=== PATIENT | male | born 1945 | race Caucasian/White ===

== ENCOUNTER 2021-02-14 12:31 | Emergency (ER) | payer OTHER ==
[~2021-02-14] VITALS: Ht 165.1 cm; Wt 78.0 kg
[2021-02-14 12:35] VITALS: BP 152/64
[2021-02-14 13:04] LABS: BASOPHILS % (AUTO) 0.6 % (0.0-5.0); EOSINOPHILS % (AUTO) 2.5 % (0.0-8.0); HEMATOCRIT 34.1 % (42-54); LYMPHOCYTES % (AUTO) 22.6 % (21.0-51.0); MEAN CORPUSCULAR HEMOGLOBIN 29.3 pg (27.0-33.0); MEAN CORPUSCULAR HGB CONC 33.7 g/dL (32.0-36.0); MEAN CORPUSCULAR VOLUME 86.8 fL (79-99); MONOCYTES % (AUTO) 8.8 % (3.0-13.0); NEUTROPHILS % (AUTO) 65.4 % (40.0-77.0); PLATELET COUNT (AUTO) 214 K/uL (130-400); RED BLOOD CELL COUNT(AUTO) 3.93 MIL/uL (4.50-6.20); RED CELL DISTRIBUTION WIDTH 12.1 % (11.0-15.5); WHITE BLOOD COUNT (AUTO) 7.1 K/uL (4.8-10.8)
[2021-02-14 13:14] LABS: ALBUMIN 2.6 g/dL (3.5-5.0); BILIRUBIN,TOTAL 0.4 mg/dL (0.2-1.0); CREATININE 2.8 mg/dL (0.5-1.5); POTASSIUM 4.4 mmol/L (3.5-5.1); TOTAL PROTEIN, SERUM 6.4 g/dL (6.0-8.3)
[2021-02-14] MEDS ORDERED: INSULIN HUMULIN R 100 UNIT/ML 3ML SQ ONE (13:30)
[2021-02-14] MEDS ORDERED: 0.9%NACL 1000ML 1,000 ML IV ONE (13:30)
[2021-02-14 13:52] LABS: APPEARANCE,URINE Clear (CLEAR); BILIRUBIN,URINE Negative (NEGATIVE); COLOR,URINE Yellow (YELLOW); GLUCOSE, URINE (UA) >=1000 mg/dL (NEGATIVE); KETONES,URINE Negative (NEGATIVE); LEUKOCYTE ESTERASE ,URINE Negative (NEGATIVE); NITRATE,URINE Negative (NEGATIVE); OCCULT BLOOD,URINE Trace (NEGATIVE); PROTEIN,URINE >=1000 mg/dL (NEGATIVE); UROBILINOGEN,URINE 0.2 mg/dL (0.2-1.0)
[2021-02-14 14:00] LABS: BACTERIA,URINE Rare /HPF (None Seen); MUCUS,URINE Rare LPF (None Seen); RBC,URINE 0-1 /HPF (0-1); SQUAMOUS EPITHELIAL CELL,UR Rare /HPF (0-2); WBC,URINE 0-1 /HPF (0-1)
[2021-02-14] MEDS ORDERED: CITA-107 PO (15:07)
[2021-02-14 15:12] VITALS: BP 152/65
== END 2021-02-14 15:20 | disposition home or self-care (01) ==
LOC: EDH 12:31
DX: E11.65 Type 2 diabetes mellitus with hyperglycemia (principal); E78.00 Pure hypercholesterolemia, unspecified; F41.9 Anxiety disorder, unspecified; F32.9 Major depressive disorder, single episode, unspecified; I10 Essential (primary) hypertension; Z79.4 Long term (current) use of insulin; Z79.899 Other long term (current) drug therapy
CPT/HCPCS: 36415; 80053; 81001; 82010; 82948; 85025; 96360; 96372; 99283; J1815; J7030

== ENCOUNTER 2021-02-26 06:42 | Inpatient (IN) | payer OTHER ==
[~2021-02-26] VITALS: Ht 182.9 cm; Wt 81.3 kg
[2021-02-26] VITALS (11 sets, daily range): BP systolic 127–164; BP diastolic 54–72
[~2021-02-26 06:42] MED LIST: CITA-107 PO
[2021-02-26 08:19] LABS: BASOPHILS % (AUTO) 0.4 % (0.0-5.0); EOSINOPHILS % (AUTO) 1.5 % (0.0-8.0); HEMATOCRIT 26.2 % (42-54); MEAN CORPUSCULAR HEMOGLOBIN 29.3 pg (27.0-33.0); MEAN CORPUSCULAR HGB CONC 33.6 g/dL (32.0-36.0); MEAN CORPUSCULAR VOLUME 87.3 fL (79-99); MONOCYTES % (AUTO) 14.5 % (3.0-13.0); NEUTROPHILS % (AUTO) 66.2 % (40.0-77.0); PLATELET COUNT (AUTO) 164 K/uL (130-400); RED CELL DISTRIBUTION WIDTH 12.4 % (11.0-15.5); WHITE BLOOD COUNT (AUTO) 4.8 K/uL (4.8-10.8)
[2021-02-26 08:42] LABS: ALBUMIN 2.2 g/dL (3.5-5.0); BILIRUBIN,TOTAL 0.3 mg/dL (0.2-1.0); CREATININE 2.9 mg/dL (0.5-1.5); POTASSIUM 3.8 mmol/L (3.5-5.1); TOTAL PROTEIN, SERUM 5.3 g/dL (6.0-8.3)
[2021-02-26 09:00] LABS: APPEARANCE,URINE Clear (CLEAR); BILIRUBIN,URINE Negative (NEGATIVE); COLOR,URINE Yellow (YELLOW); GLUCOSE, URINE (UA) >=1000 mg/dL (NEGATIVE); KETONES,URINE Trace mg/dL (NEGATIVE); LEUKOCYTE ESTERASE ,URINE Negative (NEGATIVE); NITRATE,URINE Negative (NEGATIVE); OCCULT BLOOD,URINE Small (NEGATIVE); PROTEIN,URINE >=1000 mg/dL (NEGATIVE); UROBILINOGEN,URINE 0.2 mg/dL (0.2-1.0)
[2021-02-26 10:03] LABS: RBC,URINE 0-1 /HPF (0-1)
[2021-02-26 10:04] LABS: BACTERIA,URINE Few /HPF (None Seen); SQUAMOUS EPITHELIAL CELL,UR None Seen /HPF (0-2); WBC,URINE None Seen /HPF (0-1)
[2021-02-26] MEDS ORDERED: HEPARIN 25,000 UNITS/250ML D5W 250 ML IV PRN (11:30)
[2021-02-26] MEDS ORDERED: HEPARIN 5,000 UNIT VIAL IV SCH (11:30)
[2021-02-26] MEDS ORDERED: NITROGLYCERIN 1GM OINT 1 INCH/1GM TD SCH (11:30)
[2021-02-26] MEDS ORDERED: ASPIRIN 81MG CHEW TAB PO SCH (11:30)
[2021-02-26] MEDS ORDERED: ATORVASTATIN 40 MG TABLET PO ONE (13:00)
[2021-02-26] MEDS ORDERED: METOPROLOL TARTRATE 25 MG TAB PO ONE (13:00)
[2021-02-26] MEDS ORDERED: NITROGLYCERIN 1GM OINT 1 INCH/1GM TD ONE (13:00)
[2021-02-26 13:10] LABS: HEMOGLOBIN A1C 11.9 % (4.0-6.0)
[2021-02-26] MEDS ORDERED: MORPHINE 2 MG SYG IVP PRN (13:30)
[2021-02-26] MEDS ORDERED: ONDANSETRON 4MG INJ IV PRN (13:30)
[2021-02-26] MEDS ORDERED: HYDROCODONE/ACETAMINOPHEN 5/325 MG TAB PO PRN (13:30)
[2021-02-26] MEDS ORDERED: LACTULOSE 20 GM/30 ML UDCUP PO PRN (13:30)
[2021-02-26] MEDS ORDERED: NITROGLYCERIN 0.4 MG SL TAB SL PRN (13:30)
[2021-02-26] MEDS ORDERED: ACETAMINOPHEN 325 MG TAB PO PRN (13:30)
[2021-02-26] MEDS ORDERED: METOPROLOL TARTRATE 25 MG TAB ONE (13:47)
[2021-02-26] MEDS ORDERED: PERFLUTREN PROTEIN-A MICROSPHR 0.22 MG/ML VIAL IV ONE (13:48)
[2021-02-26] MEDS: INSULIN HUMULIN R 100 UNIT/ML 3ML SQ SCH ×2 (16:26→20:50)
[2021-02-26] MEDS ORDERED: ISOSORBIDE MONO 30MG SR TAB PO SCH (17:30)
[2021-02-26] MEDS ORDERED: CLOPIDOGREL 75MG TAB ONE (17:42)
[2021-02-26] MEDS: CLOPIDOGREL 75MG TAB PO SCH (17:45)
[2021-02-26 20:01] LABS: INR 0.98 (0.85-1.15); PROTHROMBIN TIME 10.7 SEC (9.6-11.6)
[2021-02-26 20:02] LABS: PARTIAL THROMBOPLASTIN TIME 28.8 SEC (26.3-35.5)
[2021-02-26] MEDS: ATORVASTATIN 40 MG TABLET PO SCH (20:44)
[2021-02-26] MEDS: FAMOTIDINE 20MG VIAL IV SCH (20:45)
[2021-02-26] MEDS: METOPROLOL TARTRATE 25 MG TAB PO SCH (20:50)
[2021-02-26] MEDS: INSULIN GLARGINE 100 UNITS/ML 10 ML VIAL SQ SCH (20:51)
[2021-02-26] MEDS ORDERED: METOPROLOL TARTRATE 25 MG TAB PO SCH (21:00)
[2021-02-27 00:08] VITALS: BP 157/58
[2021-02-27 04:12] VITALS: BP 149/55
[2021-02-27] MEDS: INSULIN HUMULIN R 100 UNIT/ML 3ML SQ SCH ×4 (06:38→21:33)
[2021-02-27 06:48] LABS: BASOPHILS % (AUTO) 0.4 % (0.0-5.0); EOSINOPHILS % (AUTO) 1.7 % (0.0-8.0); HEMATOCRIT 29.1 % (42-54); LYMPHOCYTES % (AUTO) 28.3 % (21.0-51.0); MEAN CORPUSCULAR HEMOGLOBIN 29.1 pg (27.0-33.0); MEAN CORPUSCULAR HGB CONC 31.6 g/dL (32.0-36.0); MEAN CORPUSCULAR VOLUME 92.1 fL (79-99); MONOCYTES % (AUTO) 11.8 % (3.0-13.0); NEUTROPHILS % (AUTO) 57.4 % (40.0-77.0); PLATELET COUNT (AUTO) 184 K/uL (130-400); RED BLOOD CELL COUNT(AUTO) 3.16 MIL/uL (4.50-6.20); RED CELL DISTRIBUTION WIDTH 12.8 % (11.0-15.5); WHITE BLOOD COUNT (AUTO) 7.1 K/uL (4.8-10.8)
[2021-02-27 07:03] LABS: ALBUMIN 2.1 g/dL (3.5-5.0); BILIRUBIN,TOTAL 0.3 mg/dL (0.2-1.0); CREATININE 2.7 mg/dL (0.5-1.5); POTASSIUM 3.6 mmol/L (3.5-5.1); TOTAL PROTEIN, SERUM 5.7 g/dL (6.0-8.3)
[2021-02-27 08:09] VITALS: BP 165/58
[2021-02-27] MEDS: ASPIRIN 81 MG EC TAB PO SCH (08:55)
[2021-02-27] MEDS: ISOSORBIDE MONO 30MG SR TAB PO SCH (08:55)
[2021-02-27] MEDS: METOPROLOL TARTRATE 25 MG TAB PO SCH ×2 (08:55→21:22)
[2021-02-27] MEDS ORDERED: LISI40TA9 PO (10:30)
[2021-02-27] MEDS ORDERED: CITA40TA14 PO (10:30)
[2021-02-27] MEDS ORDERED: AEC81 PO (10:30)
[2021-02-27] MEDS ORDERED: AMLO-257 PO (10:30)
[2021-02-27] MEDS ORDERED: FERR324T PO (10:30)
[2021-02-27] MEDS ORDERED: CHOL200012 PO (10:30)
[2021-02-27] MEDS ORDERED: CALC-1125 PO (10:30)
[2021-02-27] MEDS ORDERED: METO100T14 PO (10:30)
[2021-02-27] MEDS ORDERED: INSU100I21 SQ (10:30)
[2021-02-27] MEDS ORDERED: TAMS-1 PO (10:30)
[2021-02-27] MEDS ORDERED: PIOG15TA66 PO (10:30)
[2021-02-27] MEDS ORDERED: ATOR40TA69 PO (10:30)
[2021-02-27] MEDS ORDERED: CEFTRIAXONE 1G VIAL IVP SCH (10:30)
[2021-02-27] MEDS ORDERED: AMLODIPINE 2.5 MG TAB PO SCH (11:00)
[2021-02-27 12:00] VITALS: BP 152/53
[2021-02-27] MEDS ORDERED: COMPOUND IV MISC 1 EACH IVSOLN MISC PRN (13:30)
[2021-02-27] MEDS: IRON SUCROSE COMPLEX 100 MG in 0.9%NACL 50ML 50 ML IV SCH (14:08)
[2021-02-27 16:00] VITALS: BP 152/59
[2021-02-27] MEDS ORDERED: HEPARIN 25,000 UNITS/250ML D5W 250 ML IV ONE (19:05)
[2021-02-27 20:08] VITALS: BP 161/63
[2021-02-27] MEDS: ATORVASTATIN 40 MG TABLET PO SCH (21:22)
[2021-02-27] MEDS: FAMOTIDINE 20MG VIAL IV SCH (21:22)
[2021-02-27] MEDS: TAMSULOSIN HCL 0.4 MG CAP.ER.24H PO SCH (21:22)
[2021-02-27] MEDS: INSULIN GLARGINE 100 UNITS/ML 10 ML VIAL SQ SCH (21:35)
[2021-02-28] VITALS (13 sets, daily range): BP systolic 140–164; BP diastolic 56–104
[2021-02-28 01:13] LABS: BASOPHILS % (AUTO) 0.3 % (0.0-5.0); EOSINOPHILS % (AUTO) 2.9 % (0.0-8.0); LYMPHOCYTES % (AUTO) 16.5 % (21.0-51.0); MEAN CORPUSCULAR HEMOGLOBIN 29.7 pg (27.0-33.0); MEAN CORPUSCULAR HGB CONC 32.9 g/dL (32.0-36.0); MEAN CORPUSCULAR VOLUME 90.3 fL (79-99); MONOCYTES % (AUTO) 11.6 % (3.0-13.0); NEUTROPHILS % (AUTO) 68.3 % (40.0-77.0); PLATELET COUNT (AUTO) 158 K/uL (130-400); RED CELL DISTRIBUTION WIDTH 12.6 % (11.0-15.5); WHITE BLOOD COUNT (AUTO) 6.8 K/uL (4.8-10.8)
[2021-02-28 01:28] LABS: ALBUMIN 2.1 g/dL (3.5-5.0); BILIRUBIN,TOTAL 0.2 mg/dL (0.2-1.0); CREATININE 2.9 mg/dL (0.5-1.5); POTASSIUM 3.4 mmol/L (3.5-5.1); TOTAL PROTEIN, SERUM 5.5 g/dL (6.0-8.3)
[2021-02-28] MEDS: INSULIN HUMULIN R 100 UNIT/ML 3ML SQ SCH ×4 (06:11→21:00)
[2021-02-28] MEDS: METOPROLOL TARTRATE 25 MG TAB PO SCH ×2 (08:30→21:32)
[2021-02-28] MEDS: ISOSORBIDE MONO 30MG SR TAB PO SCH (08:30)
[2021-02-28] MEDS: ASPIRIN 81 MG EC TAB PO SCH (08:30)
[2021-02-28] MEDS: CLOPIDOGREL 75MG TAB PO SCH (08:31)
[2021-02-28] MEDS: IRON SUCROSE COMPLEX 100 MG in 0.9%NACL 50ML 50 ML IV SCH (08:38)
[2021-02-28] MEDS: CITALOPRAM 20 MG TABLET PO SCH (08:38)
[2021-02-28] MEDS ORDERED: CHOLECALCIFEROL 50 MCG PO SCH (09:00)
[2021-02-28] MEDS ORDERED: NON-FORMULARY MEDICATION 1 EACH (Calcium Carbonate (Calcium) 600 MG) PO SCH (09:00)
[2021-02-28] MEDS ORDERED: CITALOPRAM HYDROBROMIDE 40 MG PO SCH (09:00)
[2021-02-28] MEDS: CALCIUM CARB 500MG PO SCH (09:00)
[2021-02-28] MEDS: VITAMIN D3 50 MCG PO SCH (09:00)
[2021-02-28] MEDS ORDERED: HYDRALAZINE HCL 10 MG TABLET PO SCH (09:00)
[2021-02-28] MEDS ORDERED: IOHEXOL-350 50ML VIAL IV ONE (11:23)
[2021-02-28] MEDS ORDERED: IOHEXOL 350 MG/ML 100ML INFUS..BTL IV ONE (11:23)
[2021-02-28] MEDS ORDERED: HEPARIN 10,000 UNIT/10ML (1,000 UNIT/ML) VIAL ONE (11:23)
[2021-02-28] MEDS ORDERED: LIDOCAINE HCL 400MG/20ML VIAL ONE (11:23)
[2021-02-28] MEDS ORDERED: NITROGLYCERIN 50MG VIAL IV ONE (11:23)
[2021-02-28] MEDS ORDERED: MIDAZOLAM HCL 1 MG/ML 2ML VIAL ONE (11:23)
[2021-02-28] MEDS ORDERED: NICARDIPINE 25MG INJ IV ONE (11:23)
[2021-02-28] MEDS ORDERED: FENTANYL CITRATE PF 50 MCG/1 ML 2ML VIAL ONE (11:23)
[2021-02-28] MEDS ORDERED: HYDRALAZINE 20MG/ML VIAL ONE ×2 (12:15→12:47)
[2021-02-28] MEDS ORDERED: EPOETIN ALFA-EPBX (ESRD) 10,000 UNIT/ML VIAL SQ SCH (12:30)
[2021-02-28] MEDS: PHARMACY COMMUNICATION MISC SCH ×3 (13:30→18:05)
[2021-02-28] MEDS: HYDRALAZINE HCL 10 MG TABLET PO SCH ×2 (15:45→21:32)
[2021-02-28 17:36] LABS: ABG HCO3 23.4 mmol/L (21.0-28.0); ABG OXYGEN SATURATION 92.2 % (95.0-99.0); ABG PCO2 35 mmHg (35-48)
[2021-02-28] MEDS ORDERED: HEPARIN 5,000 UNIT VIAL IV PRN (18:30)
[2021-02-28] MEDS ORDERED: PHARMACY COMMUNICATION MISC SCH (18:30)
[2021-02-28] MEDS ORDERED: HEPARIN 25000 UNITS/D5W 250ML IV SCH (20:00)
[2021-02-28] MEDS ORDERED: INSULIN GLARGINE 100 UNITS/ML 10 ML VIAL SQ SCH (21:00)
[2021-02-28] MEDS: FAMOTIDINE 20MG VIAL IV SCH (21:32)
[2021-02-28] MEDS: ATORVASTATIN 40 MG TABLET PO SCH (21:32)
[2021-02-28] MEDS: TAMSULOSIN HCL 0.4 MG CAP.ER.24H PO SCH (21:32)
[2021-03-01] VITALS (28 sets, daily range): BP systolic 90–162; BP diastolic 39–87
[2021-03-01 02:45] LABS: HEMATOCRIT 24.9 % (42-54); MEAN CORPUSCULAR HEMOGLOBIN 29.5 pg (27.0-33.0); MEAN CORPUSCULAR HGB CONC 33.3 g/dL (32.0-36.0); MEAN CORPUSCULAR VOLUME 88.6 fL (79-99); PLATELET COUNT (AUTO) 158 K/uL (130-400); RED BLOOD CELL COUNT(AUTO) 2.81 MIL/uL (4.50-6.20); RED CELL DISTRIBUTION WIDTH 12.7 % (11.0-15.5)
[2021-03-01 03:09] LABS: ALBUMIN 1.9 g/dL (3.5-5.0); BILIRUBIN,TOTAL 0.3 mg/dL (0.2-1.0); CREATININE 2.9 mg/dL (0.5-1.5); POTASSIUM 3.3 mmol/L (3.5-5.1); TOTAL PROTEIN, SERUM 5.1 g/dL (6.0-8.3)
[2021-03-01 04:19] LABS: LYMPHOCYTES % (MANUAL) 16 % (22-44); MAN.DIFF COMMENT-IMPRESSION MANUAL DIFFERENTIAL; MONOCYTES % (MANUAL) 4 % (2-9); PHOSPHORUS 3.2 mg/dL (2.5-4.9); SEGMENTED NEUTROPHILS % 80 % (40-70); URIC ACID 6.6 mg/dL (2.6-7.2)
[2021-03-01 04:20] LABS: PLATELET MORPHOLOGY COMMENT ADEQUATE
[2021-03-01] MEDS ORDERED: KCL 20 MEQ ERTAB PO PRN (06:30)
[2021-03-01] MEDS ORDERED: LIDOCAINE HCL-MPF 1% 2ML VIAL IV PRN (06:30)
[2021-03-01] MEDS ORDERED: POTASSIUM CHLORIDE 10% ELIXIR 20 MEQ/15 ML UDCUP PO PRN (06:30)
[2021-03-01] MEDS ORDERED: POTASSIUM CHLORIDE 20MEQ/100ML 100 ML IV PRN (06:30)
[2021-03-01] MEDS: INSULIN HUMULIN R 100 UNIT/ML 3ML SQ SCH ×4 (06:38→11:55)
[2021-03-01 06:49] LABS: ABG BASE EXCESS 1.5 mmol/L (-2.0-3.0); ABG HCO3 24.8 mmol/L (21.0-28.0); ABG OXYGEN SATURATION 95.9 % (95.0-99.0); ABG PCO2 35 mmHg (35-48)
[2021-03-01] MEDS: IRON SUCROSE COMPLEX 100 MG in 0.9%NACL 50ML 50 ML IV SCH (09:00)
[2021-03-01] MEDS ORDERED: ISOSORBIDE MONO 30MG SR TAB PO SCH (09:00)
[2021-03-01] MEDS: VITAMIN D3 50 MCG PO SCH (09:00)
[2021-03-01] MEDS ORDERED: MORPHINE 2 MG SYG ONE (09:46)
[2021-03-01] MEDS: ASPIRIN 81 MG EC TAB PO SCH (09:52)
[2021-03-01] MEDS: METOPROLOL TARTRATE 25 MG TAB PO SCH (09:53)
[2021-03-01] MEDS: CITALOPRAM 20 MG TABLET PO SCH (09:57)
[2021-03-01] MEDS ORDERED: NITROGLYCERIN 50MG/D5W 250ML 250 BOT IV SCH ×2 (11:30→16:30)
[2021-03-01] MEDS: HYDRALAZINE HCL 10 MG TABLET PO SCH (11:42)
[2021-03-01] MEDS: CALCIUM CARB 500MG PO SCH (11:42)
[2021-03-01] MEDS ORDERED: NOREPINEPHRINE BITARTRATE 8 MG in 0.9% NACL 250ML 250 ML IV PRN (12:30)
[2021-03-01] MEDS ORDERED: AMINOCAPROIC ACID 5,000MG VIAL 15,000 MG in 0.9% NACL 500ML IV.SOLN 420 ML IV PRN (12:30)
[2021-03-01] MEDS ORDERED: EPINEPHRINE PF 1MG AMP 10 MG in 0.9% NACL 250ML 240 ML IV PRN (12:30)
[2021-03-01] MEDS ORDERED: PROPOFOL 10 MG/ML 20ML VIAL IV ONE (13:08)
[2021-03-01] MEDS ORDERED: PROTAMINE SULFATE 10 MG/ML 25ML VIAL IV ONE (13:08)
[2021-03-01] MEDS ORDERED: ESMOLOL HCL 10 MG/ML 10 ML VIAL ONE (13:08)
[2021-03-01] MEDS ORDERED: HEPARIN 10,000 UNIT/10ML (1,000 UNIT/ML) VIAL ONE (13:08)
[2021-03-01] MEDS ORDERED: AMINOCAPROIC ACID 5,000MG VIAL ONE (13:08)
[2021-03-01] MEDS ORDERED: EPINEPHRINE PF 1MG AMP ONE (13:08)
[2021-03-01] MEDS ORDERED: NOREPINEPHRINE BITARTRATE 1 MG/1 ML ML IV ONE (13:08)
[2021-03-01] MEDS ORDERED: LIDOCAINE PF 100MG/5ML (2%) SYRINGE 5ML ONE (13:08)
[2021-03-01] MEDS ORDERED: FENTANYL CITRATE PF 50 MCG/1 ML 20ML VIAL IJ ONE (13:09)
[2021-03-01] MEDS ORDERED: ROCURONIUM 10MG/1ML SYR 10 MG/ML ML ONE (13:09)
[2021-03-01] MEDS ORDERED: KETAMINE 50MG/ML SYRINGE 50 MG/ML DISP.SYRIN IV ONE (13:09)
[2021-03-01] MEDS ORDERED: MIDAZOLAM HCL 1 MG/ML 2ML VIAL ONE (13:09)
[2021-03-01] MEDS ORDERED: CEFAZOLIN SODIUM 1 GM VIAL ONE ×2 (13:26→13:27)
[2021-03-01] MEDS ORDERED: OCTYL 2-CYANOACRYLATE 1 EACH TP ONE (13:27)
[2021-03-01] MEDS ORDERED: PAPAVERINE HCL 30 MG/ML 2ML VIAL ONE (13:27)
[2021-03-01] MEDS ORDERED: AMIODARONE 150MG VIAL ONE ×2 (15:03→15:14)
[2021-03-01] MEDS ORDERED: SODIUM BICARB 8.4% 50ML SYRINGE ONE (15:04)
[2021-03-01] MEDS ORDERED: 0.9%NACL 1000ML 1,000 ML IV SCH (16:30)
[2021-03-01] MEDS ORDERED: ALBUMIN (HUMAN) 5% 250 ML IV PRN (16:30)
[2021-03-01] MEDS ORDERED: ONDANSETRON 4MG INJ IV PRN (16:30)
[2021-03-01] MEDS ORDERED: DEXTROSE 50%-WATER 50 ML DISP.SYRIN IV PRN (16:30)
[2021-03-01] MEDS ORDERED: EPINEPHRINE PF 1MG AMP 10 MG in DEXTROSE 5%-WATER 250 ML IV PRN (16:30)
[2021-03-01] MEDS ORDERED: 0.9%NACL 10ML VIAL IVP PRN (16:30)
[2021-03-01] MEDS ORDERED: INSULIN REGULAR, HUMAN 3ML 100 UNIT in 0.9%NACL 100ML 99 ML IV SCH ×2 (16:30)
[2021-03-01] MEDS ORDERED: MORPHINE 2 MG SYG IV PRN ×2 (16:30→17:00)
[2021-03-01] MEDS ORDERED: GLUCAGON 1MG KIT 1 MG ML IM PRN (16:30)
[2021-03-01] MEDS ORDERED: MAGNESIUM 2GM PREMIX 50ML 50 ML IV PRN (16:30)
[2021-03-01] MEDS ORDERED: NOREPINEPHRIN 4MG/NS 250ML 250 ML IV PRN (16:30)
[2021-03-01] MEDS ORDERED: TRAMADOL HCL 50 MG TABLET PO PRN ×2 (16:30)
[2021-03-01] MEDS ORDERED: ACETAMINOPHEN 650 MG SUPPOSITORY RC PRN (16:30)
[2021-03-01] MEDS ORDERED: ACETAMINOPHEN 325 MG TAB PO PRN (16:30)
[2021-03-01] MEDS ORDERED: 0.9% NACL 500ML IV.SOLN 500 ML IV SCH (16:30)
[2021-03-01] MEDS ORDERED: PROPOFOL 1000 MG/100 ML 100 ML IV PRN (16:30)
[2021-03-01] MEDS ORDERED: AMINOCAPROIC ACID 5,000MG VIAL 15,000 MG in 0.9% NACL 250ML 250 ML IV SCH (16:30)
[2021-03-01] MEDS ORDERED: POTASSIUM PHOS 15 mMOL+NS250ML 250 ML IV PRN (16:30)
[2021-03-01 16:59] LABS: HEMATOCRIT 24.4 % (42-54); MEAN CORPUSCULAR HEMOGLOBIN 30.5 pg (27.0-33.0); MEAN CORPUSCULAR HGB CONC 33.6 g/dL (32.0-36.0); MEAN CORPUSCULAR VOLUME 90.7 fL (79-99); RED BLOOD CELL COUNT(AUTO) 2.69 MIL/uL (4.50-6.20)
[2021-03-01 17:01] LABS: ABG BASE EXCESS -2.9 mmol/L (-2.0-3.0); ABG HCO3 21.4 mmol/L (21.0-28.0); ABG OXYGEN SATURATION 93.5 % (95.0-99.0); ABG PCO2 35 mmHg (35-48)
[2021-03-01 17:07] LABS: ABG OXYGEN SATURATION 70.7 % (95.0-99.0); BASE EXCESS,VENOUS BLOOD GAS -0.6 (-2.0-3.0); HCO3,VENOUS BLOOD GAS 26.1 (21.0-28.0); PCO2,VENOUS BLOOD GAS 51 (35-48)
[2021-03-01 17:13] LABS: INR 1.27 (0.85-1.15); PROTHROMBIN TIME 13.5 SEC (9.6-11.6)
[2021-03-01 17:14] LABS: CREATININE 3.1 mg/dL (0.5-1.5); MAGNESIUM 1.8 mg/dL (1.80-2.40); PHOSPHORUS 3.5 mg/dL (2.5-4.9); POTASSIUM 3.3 mmol/L (3.5-5.1)
[2021-03-01 17:15] LABS: PARTIAL THROMBOPLASTIN TIME 33.5 SEC (26.3-35.5)
[2021-03-01 18:41] LABS: ABG BASE EXCESS -4.6 mmol/L (-2.0-3.0); ABG HCO3 19.8 mmol/L (21.0-28.0); ABG OXYGEN SATURATION 96.2 % (95.0-99.0); ABG PCO2 34 mmHg (35-48)
[2021-03-01 20:06] LABS: ABG BASE EXCESS -3.1 mmol/L (-2.0-3.0); ABG HCO3 22.1 mmol/L (21.0-28.0); ABG OXYGEN SATURATION 96.1 % (95.0-99.0); ABG PCO2 40 mmHg (35-48)
[2021-03-01] MEDS: SODIUM BICARB 50MEQ 50ML VIAL IV PRN ×2 (20:31→21:23)
[2021-03-01 21:08] LABS: ABG BASE EXCESS 0.4 mmol/L (-2.0-3.0); ABG HCO3 25.5 mmol/L (21.0-28.0); ABG OXYGEN SATURATION 96.7 % (95.0-99.0); ABG PCO2 43 mmHg (35-48)
[2021-03-01] MEDS: POTASSIUM CHLORIDE 20MEQ/100ML 100 ML IV PRN (21:22)
[2021-03-01] MEDS: FAMOTIDINE 20MG VIAL IV SCH (21:24)
[2021-03-01] MEDS: CEFAZOLIN SODIUM 1 GM VIAL IV SCH (21:58)
[2021-03-01] MEDS: CALCIUM GLUC 1GM 1 GM in 0.9%NACL 50ML 50 ML IV PRN (21:58)
[2021-03-01 22:09] LABS: ABG BASE EXCESS 0.4 mmol/L (-2.0-3.0); ABG HCO3 24.7 mmol/L (21.0-28.0); ABG OXYGEN SATURATION 96.8 % (95.0-99.0); ABG PCO2 39 mmHg (35-48)
[2021-03-01 23:44] LABS: BASOPHILS % (AUTO) 0.1 % (0.0-5.0); HEMATOCRIT 29.1 % (42-54); LYMPHOCYTES % (AUTO) 3.7 % (21.0-51.0); MEAN CORPUSCULAR HEMOGLOBIN 30.1 pg (27.0-33.0); MEAN CORPUSCULAR HGB CONC 33.7 g/dL (32.0-36.0); MEAN CORPUSCULAR VOLUME 89.3 fL (79-99); MONOCYTES % (AUTO) 9.1 % (3.0-13.0); NEUTROPHILS % (AUTO) 86.6 % (40.0-77.0); PLATELET COUNT (AUTO) 134 K/uL (130-400); RED BLOOD CELL COUNT(AUTO) 3.26 MIL/uL (4.50-6.20); RED CELL DISTRIBUTION WIDTH 13.3 % (11.0-15.5); WHITE BLOOD COUNT (AUTO) 15.8 K/uL (4.8-10.8)
[2021-03-01 23:52] LABS: CREATININE 3.6 mg/dL (0.5-1.5); MAGNESIUM 2.1 mg/dL (1.80-2.40); POTASSIUM 3.4 mmol/L (3.5-5.1)
[2021-03-02] VITALS (87 sets, daily range): BP systolic 90–150; BP diastolic 31–141
[2021-03-02 00:30] LABS: ABG OXYGEN SATURATION 97.5 % (95.0-99.0)
[2021-03-02 00:30] LABS: ABG BASE EXCESS -1.1 mmol/L (-2.0-3.0); ABG HCO3 23.6 mmol/L (21.0-28.0); ABG OXYGEN SATURATION 98.3 % (95.0-99.0); ABG PCO2 39 mmHg (35-48)
[2021-03-02 00:30] LABS: ABG OXYGEN SATURATION 98.1 % (95.0-99.0)
[2021-03-02 01:15] LABS: ABG BASE EXCESS 1.8 mmol/L (-2.0-3.0); ABG HCO3 26.1 mmol/L (21.0-28.0); ABG OXYGEN SATURATION 96.6 % (95.0-99.0); ABG PCO2 40 mmHg (35-48)
[2021-03-02 04:14] LABS: ABG BASE EXCESS 3.2 mmol/L (-2.0-3.0); ABG OXYGEN SATURATION 96.8 % (95.0-99.0); ABG PCO2 38 mmHg (35-48)
[2021-03-02 04:44] LABS: HEMATOCRIT 28.8 % (42-54); MEAN CORPUSCULAR HEMOGLOBIN 29.5 pg (27.0-33.0); MEAN CORPUSCULAR HGB CONC 33.3 g/dL (32.0-36.0); MEAN CORPUSCULAR VOLUME 88.6 fL (79-99); RED BLOOD CELL COUNT(AUTO) 3.25 MIL/uL (4.50-6.20); RED CELL DISTRIBUTION WIDTH 13.6 % (11.0-15.5); WHITE BLOOD COUNT (AUTO) 14.6 K/uL (4.8-10.8)
[2021-03-02 04:57] LABS: INR 1.07 (0.85-1.15); PROTHROMBIN TIME 11.6 SEC (9.6-11.6)
[2021-03-02 05:03] LABS: ALBUMIN 1.7 g/dL (3.5-5.0); BILIRUBIN,TOTAL 0.2 mg/dL (0.2-1.0); CREATININE 3.7 mg/dL (0.5-1.5); PHOSPHORUS 0.9 mg/dL (2.5-4.9); POTASSIUM 3.5 mmol/L (3.5-5.1); TOTAL PROTEIN, SERUM 4.5 g/dL (6.0-8.3)
[2021-03-02] MEDS: CEFAZOLIN SODIUM 1 GM VIAL IV SCH ×2 (06:07→13:12)
[2021-03-02 06:38] LABS: ABG BASE EXCESS 3.6 mmol/L (-2.0-3.0); ABG HCO3 27.4 mmol/L (21.0-28.0); ABG OXYGEN SATURATION 96.5 % (95.0-99.0); ABG PCO2 39 mmHg (35-48)
[2021-03-02] MEDS: CALCIUM GLUC 1GM 1 GM in 0.9%NACL 50ML 50 ML IV PRN (06:53)
[2021-03-02] MEDS: POTASSIUM CHLORIDE 20MEQ/100ML 100 ML IV PRN (07:57)
[2021-03-02] MEDS ORDERED: CEFAZOLIN SODIUM 1 GM VIAL IVP PRN (12:00)
[2021-03-02] MEDS: ASPIRIN 81 MG EC TAB PO SCH (16:53)
[2021-03-02] MEDS: FUROSEMIDE 20MG VIAL IV SCH (16:53)
[2021-03-02] MEDS ORDERED: EPINEPHRINE PF 1MG AMP 10 MG in 0.9% NACL 250ML 250 ML IV SCH (19:00)
[2021-03-02] MEDS ORDERED: PHARMACY COMMUNICATION MISC SCH (19:00)
[2021-03-02] MEDS ORDERED: ALBUMIN (HUMAN) 5% 500 ML IV SCH (19:41)
[2021-03-02 19:59] LABS: ABG BASE EXCESS 3.1 mmol/L (-2.0-3.0); ABG HCO3 27.5 mmol/L (21.0-28.0); ABG OXYGEN SATURATION 94.6 % (95.0-99.0); ABG PCO2 41 mmHg (35-48)
[2021-03-02] MEDS ORDERED: INSULIN HUMULIN R 100 UNIT/ML 3ML ONE (20:20)
[2021-03-02] MEDS: AMIODARONE 900MG VIAL 150 MG in DEXTROSE 5%-WATER 100 ML IV PRN (20:27)
[2021-03-02] MEDS: ATORVASTATIN 40 MG TABLET PO SCH (20:30)
[2021-03-02] MEDS ORDERED: AMIODARONE 900MG VIAL 360 MG in DEXTROSE 5%-WATER 200 ML IV PRN (20:30)
[2021-03-02] MEDS: FAMOTIDINE 20MG VIAL IV SCH (20:30)
[2021-03-02 21:07] LABS: CREATININE 4.4 mg/dL (0.5-1.5); POTASSIUM 4.2 mmol/L (3.5-5.1)
[2021-03-02 21:39] LABS: ABG BASE EXCESS -2.8 mmol/L (-2.0-3.0); ABG HCO3 21.1 mmol/L (21.0-28.0); ABG OXYGEN SATURATION 95.3 % (95.0-99.0); ABG PCO2 33 mmHg (35-48)
[2021-03-03] VITALS (31 sets, daily range): BP systolic 108–166; BP diastolic 37–95
[2021-03-03] MEDS ORDERED: AMIODARONE 900MG VIAL 450 MG in DEXTROSE 5%-WATER 250 ML IV PRN (02:30)
[2021-03-03 04:04] LABS: BASOPHILS % (AUTO) 0.1 % (0.0-5.0); EOSINOPHILS % (AUTO) 0.5 % (0.0-8.0); HEMATOCRIT 24.8 % (42-54); LYMPHOCYTES % (AUTO) 7.1 % (21.0-51.0); MEAN CORPUSCULAR HEMOGLOBIN 30.3 pg (27.0-33.0); MEAN CORPUSCULAR HGB CONC 33.5 g/dL (32.0-36.0); MEAN CORPUSCULAR VOLUME 90.5 fL (79-99); NEUTROPHILS % (AUTO) 82.4 % (40.0-77.0); PLATELET COUNT (AUTO) 106 K/uL (130-400); RED BLOOD CELL COUNT(AUTO) 2.74 MIL/uL (4.50-6.20); RED CELL DISTRIBUTION WIDTH 14.4 % (11.0-15.5); WHITE BLOOD COUNT (AUTO) 20.8 K/uL (4.8-10.8)
[2021-03-03 04:07] LABS: ABG BASE EXCESS 1.7 mmol/L (-2.0-3.0); ABG HCO3 26.2 mmol/L (21.0-28.0); ABG OXYGEN SATURATION 93.9 % (95.0-99.0); ABG PCO2 41 mmHg (35-48)
[2021-03-03 04:13] LABS: CREATININE 4.5 mg/dL (0.5-1.5); POTASSIUM 4.2 mmol/L (3.5-5.1)
[2021-03-03 04:14] LABS: INR 1.07 (0.85-1.15); PROTHROMBIN TIME 11.6 SEC (9.6-11.6)
[2021-03-03 04:15] LABS: PARTIAL THROMBOPLASTIN TIME 34.2 SEC (26.3-35.5)
[2021-03-03] MEDS: FUROSEMIDE 20MG VIAL IV SCH (04:44)
[2021-03-03] MEDS: ASPIRIN 81 MG EC TAB PO SCH (08:03)
[2021-03-03] MEDS ORDERED: PHARMACY COMMUNICATION MISC SCH ×2 (10:30)
[2021-03-03] MEDS: FUROSEMIDE 40MG VIAL IV SCH (10:37)
[2021-03-03] MEDS: ZOSYN 3.375GM+NS 50ML 50 ML IV SCH ×2 (10:37→22:09)
[2021-03-03] MEDS: FUROSEMIDE 100 MG/NS 100ML IV SCH ×4 (10:38→22:07)
[2021-03-03] MEDS: INSULIN HUMULIN R 100 UNIT/ML 3ML SQ SCH ×3 (11:30→21:00)
[2021-03-03 13:51] LABS: ABG BASE EXCESS -1.5 mmol/L (-2.0-3.0); ABG HCO3 23.3 mmol/L (21.0-28.0); ABG PCO2 40 mmHg (35-48)
[2021-03-03] MEDS: ATORVASTATIN 40 MG TABLET PO SCH (21:08)
[2021-03-03 21:49] LABS: CREATININE 5.4 mg/dL (0.5-1.5)
[2021-03-04] VITALS (22 sets, daily range): BP systolic 100–147; BP diastolic 50–90
[2021-03-04 04:23] LABS: ABG BASE EXCESS -3.9 mmol/L (-2.0-3.0); ABG HCO3 20.4 mmol/L (21.0-28.0); ABG OXYGEN SATURATION 92.3 % (95.0-99.0); ABG PCO2 34 mmHg (35-48)
[2021-03-04 05:32] LABS: HEMATOCRIT 26.8 % (42-54); MEAN CORPUSCULAR HEMOGLOBIN 30.3 pg (27.0-33.0); MEAN CORPUSCULAR HGB CONC 32.5 g/dL (32.0-36.0); MEAN CORPUSCULAR VOLUME 93.4 fL (79-99); RED BLOOD CELL COUNT(AUTO) 2.87 MIL/uL (4.50-6.20); RED CELL DISTRIBUTION WIDTH 14.1 % (11.0-15.5); WHITE BLOOD COUNT (AUTO) 15.5 K/uL (4.8-10.8)
[2021-03-04 05:48] LABS: ALBUMIN 1.7 g/dL (3.5-5.0); BILIRUBIN,TOTAL 0.4 mg/dL (0.2-1.0); CREATININE 5.7 mg/dL (0.5-1.5); MAGNESIUM 2.3 mg/dL (1.80-2.40); POTASSIUM 5.7 mmol/L (3.5-5.1); TOTAL PROTEIN, SERUM 4.9 g/dL (6.0-8.3)
[2021-03-04] MEDS: INSULIN HUMULIN R 100 UNIT/ML 3ML SQ SCH ×3 (07:36→18:00)
[2021-03-04] MEDS: ASPIRIN 81 MG EC TAB PO SCH (08:18)
[2021-03-04] MEDS: FAMOTIDINE 20MG TAB PO SCH (08:18)
[2021-03-04] MEDS: AMIODARONE 200 MG TABLET PO SCH ×3 (08:18→21:00)
[2021-03-04] MEDS: ENOXAPARIN SODIUM 30 MG/0.3 ML SQ SCH (08:19)
[2021-03-04] MEDS: INSULIN GLARGINE 100 UNITS/ML 10 ML VIAL SQ SCH (08:22)
[2021-03-04] MEDS: FUROSEMIDE 40MG VIAL IV SCH (08:31)
[2021-03-04] MEDS ORDERED: AMIODARONE 200 MG TABLET PO SCH (09:00)
[2021-03-04] MEDS: FUROSEMIDE 100 MG/NS 100ML IV SCH ×2 (09:50)
[2021-03-04] MEDS ORDERED: KAYEXALATE 15GM/60ML PO SCH (11:00)
[2021-03-04] MEDS ORDERED: DEXTROSE 5 %-0.225 % NACL 500 ML IV SCH (11:00)
[2021-03-04] MEDS: ZOSYN 3.375GM+NS 50ML 50 ML IV SCH ×2 (12:56→23:09)
[2021-03-04] MEDS: 1/2 NS 1000ML 1,000 ML IV SCH (12:58)
[2021-03-04 15:51] LABS: POTASSIUM 4.7 mmol/L (3.5-5.1)
[2021-03-04] MEDS ORDERED: AMIODARONE 150MG VIAL ONE (17:46)
[2021-03-04] MEDS ORDERED: AMIODARONE 900MG VIAL 900 MG in DEXTROSE 5%-WATER 500 ML IV SCH (18:00)
[2021-03-04] MEDS ORDERED: AMIODARONE 900MG VIAL 150 MG in DEXTROSE 5%-WATER 100 ML IV SCH (18:00)
[2021-03-04] MEDS: AMIODARONE 900MG VIAL 150 MG in DEXTROSE 5%-WATER 100 ML IV PRN (18:01)
[2021-03-04] MEDS: ATORVASTATIN 40 MG TABLET PO SCH (21:00)
[2021-03-04] MEDS ORDERED: 0.9%NACL 50ML 50 ML IV ONE (23:07)
[2021-03-05] VITALS (24 sets, daily range): BP systolic 99–155; BP diastolic 42–81
[2021-03-05 04:38] LABS: HEMATOCRIT 27.5 % (42-54); MEAN CORPUSCULAR HEMOGLOBIN 28.9 pg (27.0-33.0); MEAN CORPUSCULAR HGB CONC 31.6 g/dL (32.0-36.0); MEAN CORPUSCULAR VOLUME 91.4 fL (79-99); RED BLOOD CELL COUNT(AUTO) 3.01 MIL/uL (4.50-6.20); RED CELL DISTRIBUTION WIDTH 13.9 % (11.0-15.5); WHITE BLOOD COUNT (AUTO) 14.7 K/uL (4.8-10.8)
[2021-03-05 04:50] LABS: CREATININE 6.2 mg/dL (0.5-1.5); MAGNESIUM 2.3 mg/dL (1.80-2.40); PHOSPHORUS 5.4 mg/dL (2.5-4.9); POTASSIUM 4.3 mmol/L (3.5-5.1)
[2021-03-05] MEDS: 1/2 NS 1000ML 1,000 ML IV SCH (05:19)
[2021-03-05] MEDS: INSULIN HUMULIN R 100 UNIT/ML 3ML SQ SCH ×5 (05:50→23:43)
[2021-03-05 07:07] LABS: APPEARANCE,URINE Clear (CLEAR); BILIRUBIN,URINE Negative (NEGATIVE); COLOR,URINE Yellow (YELLOW); GLUCOSE, URINE (UA) Negative (NEGATIVE); KETONES,URINE Trace mg/dL (NEGATIVE); LEUKOCYTE ESTERASE ,URINE Trace (NEGATIVE); NITRATE,URINE Negative (NEGATIVE); OCCULT BLOOD,URINE Large (NEGATIVE); PROTEIN,URINE POS 2+ mg/dL (NEGATIVE); UROBILINOGEN,URINE 0.2 mg/dL (0.2-1.0)
[2021-03-05 07:16] LABS: BACTERIA,URINE Few /HPF (None Seen)
[2021-03-05] MEDS: ASPIRIN 81 MG EC TAB PO SCH ×2 (09:00→09:54)
[2021-03-05] MEDS: FAMOTIDINE 20MG TAB PO SCH ×2 (09:00→09:54)
[2021-03-05] MEDS: FUROSEMIDE 40MG VIAL IV SCH (09:09)
[2021-03-05] MEDS: ZOSYN 3.375GM+NS 50ML 50 ML IV SCH ×2 (09:54→23:42)
[2021-03-05] MEDS: ENOXAPARIN SODIUM 30 MG/0.3 ML SQ SCH (09:55)
[2021-03-05] MEDS: DEXTROSE 5 %-0.45 % NACL 1,000 ML IV SCH (09:55)
[2021-03-05] MEDS: INSULIN GLARGINE 100 UNITS/ML 10 ML VIAL SQ SCH (09:56)
[2021-03-05 12:45] LABS: INR 1.43 (0.85-1.15); PROTHROMBIN TIME 15.1 SEC (9.6-11.6)
[2021-03-05 12:47] LABS: PARTIAL THROMBOPLASTIN TIME 38.4 SEC (26.3-35.5)
[2021-03-05] MEDS: AMIODARONE 200 MG TABLET PO SCH ×2 (14:48→20:52)
[2021-03-05] MEDS: ATORVASTATIN 40 MG TABLET PO SCH (20:52)
[2021-03-05] MEDS ORDERED: 0.9%NACL 50ML 50 ML IV ONE (23:40)
[2021-03-06] VITALS (24 sets, daily range): BP systolic 138–170; BP diastolic 35–94
[2021-03-06] MEDS: DEXTROSE 5 %-0.45 % NACL 1,000 ML IV SCH ×2 (02:13→20:59)
[2021-03-06 03:47] LABS: HEMATOCRIT 25.9 % (42-54); MEAN CORPUSCULAR HEMOGLOBIN 29.6 pg (27.0-33.0); MEAN CORPUSCULAR HGB CONC 32.4 g/dL (32.0-36.0); MEAN CORPUSCULAR VOLUME 91.2 fL (79-99); NUCLEATED RED BLOOD CELLS 0.2 % (0.0-0.19); RED BLOOD CELL COUNT(AUTO) 2.84 MIL/uL (4.50-6.20); RED CELL DISTRIBUTION WIDTH 13.5 % (11.0-15.5); WHITE BLOOD COUNT (AUTO) 11.9 K/uL (4.8-10.8)
[2021-03-06 04:07] LABS: ALBUMIN 1.5 g/dL (3.5-5.0); BILIRUBIN,TOTAL 0.5 mg/dL (0.2-1.0); CREATININE 6.8 mg/dL (0.5-1.5); POTASSIUM 3.5 mmol/L (3.5-5.1); TOTAL PROTEIN, SERUM 4.8 g/dL (6.0-8.3)
[2021-03-06] MEDS: INSULIN HUMULIN R 100 UNIT/ML 3ML SQ SCH ×3 (06:00→17:30)
[2021-03-06] MEDS: FUROSEMIDE 40MG VIAL IV SCH (07:27)
[2021-03-06] MEDS ORDERED: AMLODIPINE 5 MG TAB PO SCH (09:00)
[2021-03-06] MEDS: ASPIRIN 81 MG EC TAB PO SCH (09:13)
[2021-03-06] MEDS: FAMOTIDINE 20MG TAB PO SCH (09:14)
[2021-03-06] MEDS: AMIODARONE 200 MG TABLET PO SCH ×2 (09:14→21:01)
[2021-03-06] MEDS: ENOXAPARIN SODIUM 30 MG/0.3 ML SQ SCH (09:14)
[2021-03-06] MEDS: INSULIN GLARGINE 100 UNITS/ML 10 ML VIAL SQ SCH (09:16)
[2021-03-06] MEDS: ZOSYN 3.375GM+NS 50ML 50 ML IV SCH ×2 (10:54→21:43)
[2021-03-06] MEDS: ATORVASTATIN 40 MG TABLET PO SCH (21:00)
[2021-03-07] VITALS (23 sets, daily range): BP systolic 136–164; BP diastolic 6–75
[2021-03-07 04:04] LABS: POTASSIUM 3.2 mmol/L (3.5-5.1)
[2021-03-07] MEDS: INSULIN HUMULIN R 100 UNIT/ML 3ML SQ SCH ×4 (06:12→21:00)
[2021-03-07] MEDS: AMLODIPINE 5 MG TAB PO SCH (08:02)
[2021-03-07] MEDS: AMIODARONE 200 MG TABLET PO SCH ×2 (08:02→21:05)
[2021-03-07] MEDS: CLOPIDOGREL 75MG TAB PO SCH (08:03)
[2021-03-07] MEDS: ASPIRIN 81 MG EC TAB PO SCH (08:03)
[2021-03-07] MEDS: FAMOTIDINE 20MG TAB PO SCH (08:03)
[2021-03-07] MEDS: ENOXAPARIN SODIUM 30 MG/0.3 ML SQ SCH (08:04)
[2021-03-07] MEDS: INSULIN GLARGINE 100 UNITS/ML 10 ML VIAL SQ SCH (08:05)
[2021-03-07] MEDS ORDERED: KCL 20 MEQ ERTAB PO SCH (08:30)
[2021-03-07] MEDS ORDERED: 0.9%NACL 50ML 50 ML IV ONE ×2 (10:33→20:33)
[2021-03-07] MEDS: ZOSYN 3.375GM+NS 50ML 50 ML IV SCH ×2 (10:35→22:55)
[2021-03-07] MEDS: ATORVASTATIN 40 MG TABLET PO SCH (21:05)
[2021-03-08] VITALS (16 sets, daily range): BP systolic 132–167; BP diastolic 55–103
[2021-03-08 03:48] LABS: HEMATOCRIT 25.5 % (42-54); MEAN CORPUSCULAR HEMOGLOBIN 29.7 pg (27.0-33.0); MEAN CORPUSCULAR HGB CONC 32.5 g/dL (32.0-36.0); MEAN CORPUSCULAR VOLUME 91.4 fL (79-99); RED BLOOD CELL COUNT(AUTO) 2.79 MIL/uL (4.50-6.20); RED CELL DISTRIBUTION WIDTH 13.3 % (11.0-15.5); WHITE BLOOD COUNT (AUTO) 9.3 K/uL (4.8-10.8)
[2021-03-08 04:04] LABS: MAGNESIUM 2.1 mg/dL (1.80-2.40); PHOSPHORUS 4.6 mg/dL (2.5-4.9); POTASSIUM 3.2 mmol/L (3.5-5.1)
[2021-03-08] MEDS: INSULIN HUMULIN R 100 UNIT/ML 3ML SQ SCH ×4 (07:30→21:00)
[2021-03-08] MEDS: CLOPIDOGREL 75MG TAB PO SCH (08:45)
[2021-03-08] MEDS: AMIODARONE 200 MG TABLET PO SCH ×2 (08:45→22:27)
[2021-03-08] MEDS: ASPIRIN 81 MG EC TAB PO SCH (08:45)
[2021-03-08] MEDS: ENOXAPARIN SODIUM 30 MG/0.3 ML SQ SCH (08:46)
[2021-03-08] MEDS: AMLODIPINE 5 MG TAB PO SCH (08:46)
[2021-03-08] MEDS: FAMOTIDINE 20MG TAB PO SCH (08:46)
[2021-03-08] MEDS: INSULIN GLARGINE 100 UNITS/ML 10 ML VIAL SQ SCH (08:48)
[2021-03-08] MEDS ORDERED: KCL 20 MEQ ERTAB PO SCH (09:00)
[2021-03-08] MEDS: ZOSYN 3.375GM+NS 50ML 50 ML IV SCH ×2 (10:14→22:27)
[2021-03-08] MEDS ORDERED: 0.9%NACL 50ML 50 ML IV ONE (20:08)
[2021-03-08] MEDS: ATORVASTATIN 40 MG TABLET PO SCH (22:27)
[2021-03-09] VITALS: BP 160/69
[2021-03-09 03:36] LABS: HEMATOCRIT 26.5 % (42-54); MEAN CORPUSCULAR HEMOGLOBIN 29.3 pg (27.0-33.0); MEAN CORPUSCULAR HGB CONC 32.1 g/dL (32.0-36.0); MEAN CORPUSCULAR VOLUME 91.4 fL (79-99); RED BLOOD CELL COUNT(AUTO) 2.9 MIL/uL (4.50-6.20); RED CELL DISTRIBUTION WIDTH 13.7 % (11.0-15.5); WHITE BLOOD COUNT (AUTO) 8.7 K/uL (4.8-10.8)
[2021-03-09 04:00] VITALS: BP 165/69
[2021-03-09 04:08] LABS: CREATININE 6.6 mg/dL (0.5-1.5); PHOSPHORUS 4.5 mg/dL (2.5-4.9); POTASSIUM 3.1 mmol/L (3.5-5.1)
[2021-03-09] MEDS: INSULIN GLARGINE 100 UNITS/ML 10 ML VIAL SQ SCH ×2 (07:30→09:14)
[2021-03-09 08:00] VITALS: BP 170/64
[2021-03-09] MEDS: CLOPIDOGREL 75MG TAB PO SCH (09:07)
[2021-03-09] MEDS: AMLODIPINE 5 MG TAB PO SCH (09:07)
[2021-03-09] MEDS: FAMOTIDINE 20MG TAB PO SCH (09:07)
[2021-03-09] MEDS: ASPIRIN 81 MG EC TAB PO SCH (09:07)
[2021-03-09] MEDS: AMIODARONE 200 MG TABLET PO SCH ×2 (09:08→20:37)
[2021-03-09] MEDS: ENOXAPARIN SODIUM 30 MG/0.3 ML SQ SCH (09:08)
[2021-03-09] MEDS: INSULIN HUMULIN R 100 UNIT/ML 3ML SQ SCH ×3 (09:13→21:06)
[2021-03-09 11:50] VITALS: BP 159/59
[2021-03-09] MEDS ORDERED: KCL 20 MEQ ERTAB PO SCH (12:00)
[2021-03-09] MEDS: ZOSYN 3.375GM+NS 50ML 50 ML IV SCH (12:33)
[2021-03-09 16:00] VITALS: BP 158/93
[2021-03-09 19:00] VITALS: BP 147/65
[2021-03-09] MEDS: ATORVASTATIN 40 MG TABLET PO SCH (20:37)
[2021-03-10] VITALS: BP 157/64
[2021-03-10] MEDS: ZOSYN 3.375GM+NS 50ML 50 ML IV SCH ×3 (00:35→20:53)
[2021-03-10 04:00] VITALS: BP 153/61
[2021-03-10] MEDS: INSULIN HUMULIN R 100 UNIT/ML 3ML SQ SCH ×4 (06:01→21:00)
[2021-03-10 07:00] VITALS: BP 154/65
[2021-03-10] MEDS ORDERED: INSULIN GLARGINE 100 UNITS/ML 10 ML VIAL SQ SCH (07:30)
[2021-03-10 08:31] LABS: BASOPHILS % (AUTO) 0.3 % (0.0-5.0); EOSINOPHILS % (AUTO) 3.6 % (0.0-8.0); HEMATOCRIT 28.8 % (42-54); LYMPHOCYTES % (AUTO) 17.5 % (21.0-51.0); MEAN CORPUSCULAR HEMOGLOBIN 29.2 pg (27.0-33.0); MEAN CORPUSCULAR HGB CONC 31.9 g/dL (32.0-36.0); MEAN CORPUSCULAR VOLUME 91.4 fL (79-99); MONOCYTES % (AUTO) 10.8 % (3.0-13.0); NEUTROPHILS % (AUTO) 66.3 % (40.0-77.0); PLATELET COUNT (AUTO) 305 K/uL (130-400); RED BLOOD CELL COUNT(AUTO) 3.15 MIL/uL (4.50-6.20); RED CELL DISTRIBUTION WIDTH 14.2 % (11.0-15.5); WHITE BLOOD COUNT (AUTO) 7.6 K/uL (4.8-10.8)
[2021-03-10 08:43] LABS: CREATININE 5.8 mg/dL (0.5-1.5)
[2021-03-10 08:52] LABS: POTASSIUM 2.7 mmol/L (3.5-5.1)
[2021-03-10] MEDS ORDERED: KCL 20 MEQ ERTAB PO SCH (10:30)
[2021-03-10] MEDS ORDERED: POTASSIUM CHLORIDE 10% ELIXIR 20 MEQ/15 ML UDCUP PO PRN (10:30)
[2021-03-10] MEDS ORDERED: LIDOCAINE HCL-MPF 1% 2ML VIAL IV PRN (10:30)
[2021-03-10] MEDS ORDERED: POTASSIUM CHLORIDE 10MEQ/100ML 100 ML IV PRN (10:30)
[2021-03-10] MEDS: ASPIRIN 81 MG EC TAB PO SCH (10:48)
[2021-03-10] MEDS: AMLODIPINE 5 MG TAB PO SCH (10:50)
[2021-03-10] MEDS: CLOPIDOGREL 75MG TAB PO SCH (10:50)
[2021-03-10] MEDS: FAMOTIDINE 20MG TAB PO SCH (10:50)
[2021-03-10] MEDS: AMIODARONE 200 MG TABLET PO SCH ×2 (10:50→20:52)
[2021-03-10] MEDS: ENOXAPARIN SODIUM 30 MG/0.3 ML SQ SCH (10:51)
[2021-03-10 11:00] VITALS: BP 141/59
[2021-03-10 15:00] VITALS: BP 128/59
[2021-03-10] MEDS: KCL 20 MEQ ERTAB PO PRN ×2 (15:24→17:45)
[2021-03-10] MEDS: ATORVASTATIN 40 MG TABLET PO SCH (20:52)
[2021-03-10 21:38] VITALS: BP 176/62
== END 2021-03-10 23:58 | DRG 233 ==
LOC: EDH 06:42 → EDHIP 13:08 → 4DH 21:41 → 2CH 03-01 15:05 → 2CV 03-01 15:24 → 2CH 03-02 18:42 → 2DH 03-04 17:37 → 4CH 03-09 04:23
PROVIDERS: ADMIT Internal Medicine; ATTEND Internal Medicine
PROC: 4A023N7 Measurement of Cardiac Sampling and Pressure, Left Heart, Percutaneous Approach (ICD-10-PCS; 2021-02-28)
PROC: B2111ZZ Fluoroscopy of Multiple Coronary Arteries using Low Osmolar Contrast (ICD-10-PCS; 2021-02-28)
PROC: 06BP4ZZ Excision of Right Saphenous Vein, Percutaneous Endoscopic Approach (ICD-10-PCS; 2021-03-01)
PROC: 30233N1 Transfusion of Nonautologous Red Blood Cells into Peripheral Vein, Percutaneous Approach (ICD-10-PCS; 2021-03-01)
PROC: 0210099 Bypass Coronary Artery, One Artery from Left Internal Mammary with Autologous Venous Tissue, Open Approach (ICD-10-PCS; principal; 2021-03-01 13:00)
PROC: 021209W Bypass Coronary Artery, Three Arteries from Aorta with Autologous Venous Tissue, Open Approach (ICD-10-PCS; 2021-03-01 13:00)
DX: I21.4 Non-ST elevation (NSTEMI) myocardial infarction (principal); I50.43 Acute on chronic combined systolic (congestive) and diastolic (congestive) heart failure; J96.91 Respiratory failure, unspecified with hypoxia; N18.6 End stage renal disease; J69.0 Pneumonitis due to inhalation of food and vomit; J95.1 Acute pulmonary insufficiency following thoracic surgery; N17.9 Acute kidney failure, unspecified; I13.2 Hypertensive heart and chronic kidney disease with heart failure and with stage 5 chronic kidney disease, or end stage renal disease; E87.0 Hyperosmolality and hypernatremia; R78.81 Bacteremia; I97.190 Other postprocedural cardiac functional disturbances following cardiac surgery; E87.6 Hypokalemia; E11.22 Type 2 diabetes mellitus with diabetic chronic kidney disease; E78.5 Hyperlipidemia, unspecified; E66.9 Obesity, unspecified; Z68.30 Body mass index [BMI] 30.0-30.9, adult; E11.65 Type 2 diabetes mellitus with hyperglycemia; F41.9 Anxiety disorder, unspecified; E78.00 Pure hypercholesterolemia, unspecified; I25.110 Atherosclerotic heart disease of native coronary artery with unstable angina pectoris; E88.09 Other disorders of plasma-protein metabolism, not elsewhere classified; F32.9 Major depressive disorder, single episode, unspecified; E11.42 Type 2 diabetes mellitus with diabetic polyneuropathy; Z20.822 Contact with and (suspected) exposure to COVID-19; I25.5 Ischemic cardiomyopathy; I44.7 Left bundle-branch block, unspecified; I48.0 Paroxysmal atrial fibrillation; N40.0 Benign prostatic hyperplasia without lower urinary tract symptoms; E87.5 Hyperkalemia; B96.89 Other specified bacterial agents as the cause of diseases classified elsewhere; D50.9 Iron deficiency anemia, unspecified; D63.8 Anemia in other chronic diseases classified elsewhere; E11.51 Type 2 diabetes mellitus with diabetic peripheral angiopathy without gangrene; R13.12 Dysphagia, oropharyngeal phase; Z98.42 Cataract extraction status, left eye; Z98.41 Cataract extraction status, right eye; Z95.5 Presence of coronary angioplasty implant and graft; Z79.84 Long term (current) use of oral hypoglycemic drugs; Z79.4 Long term (current) use of insulin; Z79.82 Long term (current) use of aspirin; Z79.899 Other long term (current) drug therapy; Z91.19 Patient's noncompliance with other medical treatment and regimen; Y83.9 Surgical procedure, unspecified as the cause of abnormal reaction of the patient, or of later complication, without mention of misadventure at the time of the procedure; Y92.89 Other specified places as the place of occurrence of the external cause
CPT/HCPCS: 36415; 36600; 70450; 71045; 74230; 76770; 80048; 80053; 81001; 82378; 82435; 82550; 82728; 82803; 82947; 82948; 83036; 83540; 83550; 83605; 83735; 83880; 84100; 84132; 84295; 84443; 84484; 84550; 85018; 85025; 85027; 85347; 85378; 85610; 85730; 86850; 86900; 86901; 86923; 87040; 87077; 87088; 87186; 87635; 87804; 92526; 92610; 92611; 93005; 93356; 93458; 93880; 93970; 94002; 94003; 94010; 94150; 97039; A7048; C1894; C8929; C9803; G0378; J0171; J0282; J0360; J0610; J0690; J0696; J1644; J1650; J1756; J1815; J1940; J2001; J2250; J2440; J2543; J2704; J2720; J3010; J3480; J3490; J7030; J7040; J7042; J7050; J7060; J7120; P9016; P9045; Q9967

== ENCOUNTER 2021-05-02 07:33 | Inpatient (IN) | payer MEDICARE, OTHER ==
[~2021-05-02] VITALS: Ht 167.6 cm; Wt 72.0 kg
[~2021-05-02 07:33] MED LIST changes: +AEC81 PO; +AMLO-257 PO; +ATOR40TA69 PO; +CALC-1125 PO; +CHOL200012 PO; +CITA40TA14 PO; +FERR324T PO; +INSU100I21 SQ; +LISI40TA9 PO; +METO100T14 PO; +PIOG15TA66 PO; +TAMS-1 PO
[2021-05-02 08:10] LABS: BASOPHILS % (AUTO) 0.3 % (0.0-5.0); EOSINOPHILS % (AUTO) 3.5 % (0.0-8.0); HEMATOCRIT 25.3 % (42-54); LYMPHOCYTES % (AUTO) 18.8 % (21.0-51.0); MEAN CORPUSCULAR HEMOGLOBIN 27.9 pg (27.0-33.0); MEAN CORPUSCULAR VOLUME 87.2 fL (79-99); MONOCYTES % (AUTO) 10.4 % (3.0-13.0); NEUTROPHILS % (AUTO) 66.5 % (40.0-77.0); PLATELET COUNT (AUTO) 303 K/uL (130-400); RED CELL DISTRIBUTION WIDTH 14.9 % (11.0-15.5); WHITE BLOOD COUNT (AUTO) 11.5 K/uL (4.8-10.8)
[2021-05-02 08:33] LABS: ALBUMIN 1.9 g/dL (3.5-5.0); BILIRUBIN,TOTAL 0.6 mg/dL (0.2-1.0); CREATININE 4.5 mg/dL (0.5-1.5); POTASSIUM 3.9 mmol/L (3.5-5.1); TOTAL PROTEIN, SERUM 6.4 g/dL (6.0-8.3)
[2021-05-02 08:48] LABS: APPEARANCE,URINE Clear (CLEAR); BILIRUBIN,URINE Negative (NEGATIVE); COLOR,URINE Yellow (YELLOW); GLUCOSE, URINE (UA) Negative (NEGATIVE); KETONES,URINE Negative (NEGATIVE); LEUKOCYTE ESTERASE ,URINE Negative (NEGATIVE); NITRATE,URINE Negative (NEGATIVE); OCCULT BLOOD,URINE Negative (NEGATIVE); PH,URINE 5.5 (5.0-8.0); PROTEIN,URINE 300 mg/dL (NEGATIVE); UROBILINOGEN,URINE 0.2 mg/dL (0.2-1.0)
[2021-05-02 08:51] LABS: B-TYPE NATRIURETIC PEPTIDE 324 pg/mL (0-100)
[2021-05-02 08:56] LABS: BACTERIA,URINE Rare /HPF (None Seen); RBC,URINE 0-1 /HPF (0-1); SQUAMOUS EPITHELIAL CELL,UR Rare /HPF (0-2); WBC,URINE 0-1 /HPF (0-1)
[2021-05-02] MEDS ORDERED: FUROSEMIDE 20MG VIAL IV ONE (10:30)
[2021-05-02] MEDS ORDERED: HYDRALAZINE 20MG/ML VIAL IV PRN (11:30)
[2021-05-02] MEDS ORDERED: ONDANSETRON 4MG INJ IV PRN (11:30)
[2021-05-02] MEDS: INSULIN HUMULIN R 100 UNIT/ML 3ML SQ SCH ×3 (11:30→19:51)
[2021-05-02] MEDS ORDERED: ACETAMINOPHEN 325 MG TAB PO PRN (11:30)
[2021-05-02 11:34] LABS: ABG HCO3 24.7 mmol/L (21.0-28.0); ABG PCO2 35 mmHg (35-48)
[2021-05-02 11:48] LABS: MAGNESIUM 2.1 mg/dL (1.80-2.40)
[2021-05-02 11:51] LABS: HEMOGLOBIN A1C 9.2 % (4.0-6.0)
[2021-05-02 12:08] LABS: INR 1.1 (0.85-1.15); PROTHROMBIN TIME 11.9 SEC (9.6-11.6)
[2021-05-02 12:09] LABS: PARTIAL THROMBOPLASTIN TIME 27.6 SEC (26.3-35.5)
[2021-05-02] MEDS ORDERED: DEXTROSE 50%-WATER 50 ML DISP.SYRIN IV ONE ×3 (12:46→23:50)
[2021-05-02] MEDS: FUROSEMIDE 40MG VIAL IVP SCH ×2 (15:27→22:39)
[2021-05-02] MEDS ORDERED: CLOP75TA32 PO (16:37)
[2021-05-02] MEDS ORDERED: CARB15DR OP (16:37)
[2021-05-02] MEDS ORDERED: TRIA15CR48 TP (16:37)
[2021-05-02] MEDS ORDERED: AMIO200T68 PO (16:37)
[2021-05-02] MEDS ORDERED: FOLI0.8T22 PO (16:37)
[2021-05-02] MEDS ORDERED: MULT-209 PO (16:37)
[2021-05-02] MEDS ORDERED: TORS20TA4 PO (16:37)
[2021-05-02] MEDS ORDERED: INSLAN SQ (16:37)
[2021-05-02] MEDS ORDERED: CYAN100099 PO (16:37)
[2021-05-02] MEDS ORDERED: FOLI1 PO (16:37)
[2021-05-02 17:31] VITALS: BP 124/59
[2021-05-02 19:48] VITALS: BP 116/52
[2021-05-03 00:13] VITALS: BP 137/51
[2021-05-03 04:04] VITALS: BP 125/52
[2021-05-03 04:35] LABS: BASOPHILS % (AUTO) 0.2 % (0.0-5.0); EOSINOPHILS % (AUTO) 3.7 % (0.0-8.0); HEMATOCRIT 25.6 % (42-54); LYMPHOCYTES % (AUTO) 16.4 % (21.0-51.0); MEAN CORPUSCULAR VOLUME 87.4 fL (79-99); MONOCYTES % (AUTO) 10.9 % (3.0-13.0); NEUTROPHILS % (AUTO) 68.5 % (40.0-77.0); PLATELET COUNT (AUTO) 322 K/uL (130-400); RED BLOOD CELL COUNT(AUTO) 2.93 MIL/uL (4.50-6.20); RED CELL DISTRIBUTION WIDTH 15.1 % (11.0-15.5); WHITE BLOOD COUNT (AUTO) 11.7 K/uL (4.8-10.8)
[2021-05-03 04:37] LABS: % IRON SATURATION 29.2 % (30-44)
[2021-05-03 04:41] LABS: ALBUMIN 1.8 g/dL (3.5-5.0); BILIRUBIN,TOTAL 0.5 mg/dL (0.2-1.0); CREATININE 4.3 mg/dL (0.5-1.5); PHOSPHORUS 5.7 mg/dL (2.5-4.9); POTASSIUM 3.5 mmol/L (3.5-5.1); URIC ACID 8.6 mg/dL (2.6-7.2)
[2021-05-03] MEDS: FUROSEMIDE 40MG VIAL IVP SCH ×4 (06:48→19:42)
[2021-05-03] MEDS: INSULIN HUMULIN R 100 UNIT/ML 3ML SQ SCH ×3 (07:30→20:06)
[2021-05-03 08:30] VITALS: BP 136/59
[2021-05-03] MEDS ORDERED: FAMOTIDINE 20MG VIAL IV SCH (09:00)
[2021-05-03] MEDS: Vitamin B Complex/Vit C/Folic Acid PO SCH (09:29)
[2021-05-03 12:48] VITALS: BP 133/64
[2021-05-03] MEDS ORDERED: FUROSEMIDE 100MG VIAL IVP ONE (16:00)
[2021-05-03 16:30] VITALS: BP 142/65
[2021-05-03 20:00] VITALS: BP 136/52
[2021-05-04] VITALS (7 sets, daily range): BP systolic 128–154; BP diastolic 52–67
[2021-05-04 04:07] LABS: HEMATOCRIT 23.7 % (42-54); MEAN CORPUSCULAR HEMOGLOBIN 28.4 pg (27.0-33.0); MEAN CORPUSCULAR HGB CONC 32.1 g/dL (32.0-36.0); MEAN CORPUSCULAR VOLUME 88.4 fL (79-99); PLATELET COUNT (AUTO) 295 K/uL (130-400); RED BLOOD CELL COUNT(AUTO) 2.68 MIL/uL (4.50-6.20); RED CELL DISTRIBUTION WIDTH 15.2 % (11.0-15.5); WHITE BLOOD COUNT (AUTO) 11.4 K/uL (4.8-10.8)
[2021-05-04 04:22] LABS: CREATININE 4.4 mg/dL (0.5-1.5); MAGNESIUM 2.1 mg/dL (1.80-2.40); POTASSIUM 3.6 mmol/L (3.5-5.1)
[2021-05-04 05:06] LABS: EOSINOPHILS % (MANUAL) 2 % (1-6); LYMPHOCYTES % (MANUAL) 20 % (22-44); MAN.DIFF COMMENT-IMPRESSION MANUAL DIFFERENTIAL; MONOCYTES % (MANUAL) 4 % (2-9); SEGMENTED NEUTROPHILS % 74 % (40-70)
[2021-05-04 05:07] LABS: PLATELET MORPHOLOGY COMMENT ADEQUATE
[2021-05-04] MEDS: INSULIN HUMULIN R 100 UNIT/ML 3ML SQ SCH ×4 (06:08→20:05)
[2021-05-04] MEDS: Vitamin B Complex/Vit C/Folic Acid PO SCH (07:59)
[2021-05-04] MEDS: FAMOTIDINE 20MG TAB PO SCH (07:59)
[2021-05-04] MEDS: FUROSEMIDE 40MG VIAL IVP SCH ×3 (08:01→21:00)
[2021-05-04] MEDS ORDERED: COMPOUND IV REFRIGERATED 1 EACH IVSOLN MISC PRN (17:00)
[2021-05-04] MEDS ORDERED: EPOETIN ALFA-EPBX (NON-ESRD) 10,000 UNIT/ML VIAL SQ SCH (20:00)
[2021-05-05 04:08] VITALS: BP 143/62
[2021-05-05 04:21] LABS: HEMATOCRIT 24.3 % (42-54); MEAN CORPUSCULAR HGB CONC 31.3 g/dL (32.0-36.0); MEAN CORPUSCULAR VOLUME 89.7 fL (79-99); RED BLOOD CELL COUNT(AUTO) 2.71 MIL/uL (4.50-6.20); RED CELL DISTRIBUTION WIDTH 15.1 % (11.0-15.5); WHITE BLOOD COUNT (AUTO) 11.8 K/uL (4.8-10.8)
[2021-05-05 04:25] LABS: CREATININE 4.5 mg/dL (0.5-1.5); PHOSPHORUS 5.4 mg/dL (2.5-4.9); POTASSIUM 3.4 mmol/L (3.5-5.1)
[2021-05-05] MEDS: FUROSEMIDE 40MG VIAL IVP SCH ×2 (05:51→16:20)
[2021-05-05] MEDS: INSULIN HUMULIN R 100 UNIT/ML 3ML SQ SCH ×4 (05:51→20:03)
[2021-05-05] MEDS: Vitamin B Complex/Vit C/Folic Acid PO SCH (07:44)
[2021-05-05] MEDS: FAMOTIDINE 20MG TAB PO SCH (07:44)
[2021-05-05 08:03] VITALS: BP 152/62
[2021-05-05 12:02] VITALS: BP 145/66
[2021-05-05] MEDS: CALCIUM AC 667MG CAP PO SCH (16:10)
[2021-05-05 16:17] VITALS: BP 152/57
[2021-05-05] MEDS ORDERED: PHARMACY COMMUNICATION MISC SCH (16:30)
[2021-05-05 20:00] VITALS: BP 149/60
[2021-05-05 23:54] VITALS: BP 165/67
[2021-05-06] VITALS (25 sets, daily range): BP systolic 138–165; BP diastolic 60–79
[2021-05-06] MEDS: FUROSEMIDE 40MG VIAL IVP SCH ×2 (03:16→17:00)
[2021-05-06 05:28] LABS: HEMATOCRIT 26.4 % (42-54); MEAN CORPUSCULAR HEMOGLOBIN 28.1 pg (27.0-33.0); MEAN CORPUSCULAR HGB CONC 31.1 g/dL (32.0-36.0); MEAN CORPUSCULAR VOLUME 90.4 fL (79-99); RED BLOOD CELL COUNT(AUTO) 2.92 MIL/uL (4.50-6.20); RED CELL DISTRIBUTION WIDTH 15.4 % (11.0-15.5); WHITE BLOOD COUNT (AUTO) 11.5 K/uL (4.8-10.8)
[2021-05-06 05:45] LABS: % IRON SATURATION 20.4 % (30-44)
[2021-05-06 05:47] LABS: BILIRUBIN,TOTAL 0.6 mg/dL (0.2-1.0); CREATININE 4.6 mg/dL (0.5-1.5); PHOSPHORUS 4.8 mg/dL (2.5-4.9); POTASSIUM 3.1 mmol/L (3.5-5.1); TOTAL PROTEIN, SERUM 6.3 g/dL (6.0-8.3)
[2021-05-06 05:49] LABS: INR 1.11 (0.85-1.15)
[2021-05-06] MEDS: INSULIN HUMULIN R 100 UNIT/ML 3ML SQ SCH ×4 (06:12→20:50)
[2021-05-06] MEDS: CALCIUM AC 667MG CAP PO SCH ×3 (08:00→16:46)
[2021-05-06] MEDS: Vitamin B Complex/Vit C/Folic Acid PO SCH (09:00)
[2021-05-06] MEDS: FAMOTIDINE 20MG TAB PO SCH (09:00)
[2021-05-06] MEDS ORDERED: LIDOCAINE HCL 1% MDV 50ML VIAL ONE (09:41)
[2021-05-06] MEDS ORDERED: HEPARIN 1,000 UNIT VIAL ONE (09:49)
[2021-05-06] MEDS: ASPIRIN 81 MG EC TAB PO SCH (11:17)
[2021-05-06] MEDS ORDERED: COMPOUND IV MISC 1 EACH IVSOLN MISC PRN (12:30)
[2021-05-06] MEDS: IRON SUCROSE COMPLEX 300 MG in 0.9%NACL 50ML 50 ML IV SCH (14:20)
[2021-05-06] MEDS: HEPARIN 5,000 UNIT VIAL IJ PRN (19:36)
[2021-05-06] MEDS: ATORVASTATIN 40 MG TABLET PO SCH (20:52)
[2021-05-07] VITALS (17 sets, daily range): BP systolic 109–168; BP diastolic 53–66
[2021-05-07] MEDS: FUROSEMIDE 40MG VIAL IVP SCH (04:47)
[2021-05-07 05:53] LABS: HEMATOCRIT 27.4 % (42-54); MEAN CORPUSCULAR HEMOGLOBIN 28.3 pg (27.0-33.0); MEAN CORPUSCULAR HGB CONC 31.4 g/dL (32.0-36.0); MEAN CORPUSCULAR VOLUME 90.1 fL (79-99); RED BLOOD CELL COUNT(AUTO) 3.04 MIL/uL (4.50-6.20); RED CELL DISTRIBUTION WIDTH 15.5 % (11.0-15.5); WHITE BLOOD COUNT (AUTO) 9.2 K/uL (4.8-10.8)
[2021-05-07 06:06] LABS: CREATININE 3.4 mg/dL (0.5-1.5); POTASSIUM 3.7 mmol/L (3.5-5.1)
[2021-05-07] MEDS: INSULIN HUMULIN R 100 UNIT/ML 3ML SQ SCH ×4 (06:19→21:00)
[2021-05-07] MEDS: CALCIUM AC 667MG CAP PO SCH ×3 (11:09→16:25)
[2021-05-07] MEDS: FAMOTIDINE 20MG TAB PO SCH (11:09)
[2021-05-07] MEDS: ASPIRIN 81 MG EC TAB PO SCH (11:09)
[2021-05-07] MEDS: IRON SUCROSE COMPLEX 300 MG in 0.9%NACL 50ML 50 ML IV SCH (11:10)
[2021-05-07] MEDS: Vitamin B Complex/Vit C/Folic Acid PO SCH (11:11)
[2021-05-07 15:11] LABS: HEPATITIS Bs ANTIGEN SCREEN P Negative (Negative)
[2021-05-07] MEDS: NACL NASAL SPRAY 120 SPRAY/BOTTLE NS SCH ×2 (16:39→21:07)
[2021-05-07] MEDS: ATORVASTATIN 40 MG TABLET PO SCH (21:07)
[2021-05-08] VITALS (7 sets, daily range): BP systolic 104–167; BP diastolic 43–69
[2021-05-08 05:42] LABS: ALBUMIN 1.8 g/dL (3.5-5.0); BILIRUBIN,TOTAL 0.8 mg/dL (0.2-1.0); CREATININE 2.8 mg/dL (0.5-1.5); MAGNESIUM 2.1 mg/dL (1.80-2.40); PHOSPHORUS 3.8 mg/dL (2.5-4.9); POTASSIUM 4.1 mmol/L (3.5-5.1); TOTAL PROTEIN, SERUM 6.1 g/dL (6.0-8.3)
[2021-05-08 06:13] LABS: HEMATOCRIT 25.1 % (42-54); MEAN CORPUSCULAR HEMOGLOBIN 28.4 pg (27.0-33.0); MEAN CORPUSCULAR HGB CONC 31.9 g/dL (32.0-36.0); RED BLOOD CELL COUNT(AUTO) 2.82 MIL/uL (4.50-6.20); RED CELL DISTRIBUTION WIDTH 15.7 % (11.0-15.5); WHITE BLOOD COUNT (AUTO) 12.3 K/uL (4.8-10.8)
[2021-05-08] MEDS: INSULIN HUMULIN R 100 UNIT/ML 3ML SQ SCH ×4 (06:26→21:07)
[2021-05-08] MEDS: CALCIUM AC 667MG CAP PO SCH ×3 (09:30→16:41)
[2021-05-08] MEDS: FAMOTIDINE 20MG TAB PO SCH (09:30)
[2021-05-08] MEDS: ASPIRIN 81 MG EC TAB PO SCH (09:30)
[2021-05-08] MEDS: Vitamin B Complex/Vit C/Folic Acid PO SCH (09:30)
[2021-05-08] MEDS: IRON SUCROSE COMPLEX 300 MG in 0.9%NACL 50ML 50 ML IV SCH (09:31)
[2021-05-08] MEDS: NACL NASAL SPRAY 120 SPRAY/BOTTLE NS SCH ×3 (09:38→21:07)
[2021-05-08] MEDS: ATORVASTATIN 40 MG TABLET PO SCH (21:06)
[2021-05-09] VITALS (64 sets, daily range): BP systolic 85–174; BP diastolic 38–95
[2021-05-09 04:51] LABS: BASOPHILS % (AUTO) 0.3 % (0.0-5.0); HEMATOCRIT 25.1 % (42-54); LYMPHOCYTES % (AUTO) 16.4 % (21.0-51.0); MEAN CORPUSCULAR HEMOGLOBIN 28.1 pg (27.0-33.0); MEAN CORPUSCULAR HGB CONC 31.1 g/dL (32.0-36.0); MEAN CORPUSCULAR VOLUME 90.3 fL (79-99); MONOCYTES % (AUTO) 11.2 % (3.0-13.0); NEUTROPHILS % (AUTO) 69.1 % (40.0-77.0); PLATELET COUNT (AUTO) 298 K/uL (130-400); RED BLOOD CELL COUNT(AUTO) 2.78 MIL/uL (4.50-6.20); RED CELL DISTRIBUTION WIDTH 15.8 % (11.0-15.5); WHITE BLOOD COUNT (AUTO) 14.2 K/uL (4.8-10.8)
[2021-05-09 05:02] LABS: INR 1.13 (0.85-1.15); PROTHROMBIN TIME 12.2 SEC (9.6-11.6)
[2021-05-09 05:03] LABS: PARTIAL THROMBOPLASTIN TIME 31.6 SEC (26.3-35.5)
[2021-05-09 05:07] LABS: ALBUMIN 1.9 g/dL (3.5-5.0); BILIRUBIN,TOTAL 0.7 mg/dL (0.2-1.0); CREATININE 3.9 mg/dL (0.5-1.5); MAGNESIUM 2.1 mg/dL (1.80-2.40); PHOSPHORUS 3.5 mg/dL (2.5-4.9); POTASSIUM 3.2 mmol/L (3.5-5.1); TOTAL PROTEIN, SERUM 5.9 g/dL (6.0-8.3)
[2021-05-09] MEDS: INSULIN HUMULIN R 100 UNIT/ML 3ML SQ SCH ×2 (05:59→22:32)
[2021-05-09] MEDS ORDERED: 0.9% NACL 500ML IV.SOLN 500 ML IV ONE (07:15)
[2021-05-09] MEDS: CEFAZOLIN SODIUM 1 GM VIAL IVP PRN ×2 (07:18→08:40)
[2021-05-09] MEDS ORDERED: CEFAZOLIN SODIUM 1 GM VIAL ONE (07:30)
[2021-05-09] MEDS: CALCIUM AC 667MG CAP PO SCH (08:00)
[2021-05-09] MEDS ORDERED: KETAMINE 50MG/ML SYRINGE 50 MG/ML DISP.SYRIN IV ONE (08:22)
[2021-05-09] MEDS ORDERED: ROPIVACAINE 0.5% 5MG/ML 30ML IJ ONE (08:22)
[2021-05-09] MEDS ORDERED: DEXAMETHASONE SOD PHOSPHATE 10MG/ML 1ML VIAL ONE ×2 (08:23→08:25)
[2021-05-09] MEDS ORDERED: MIDAZOLAM HCL 1 MG/ML 2ML VIAL ONE ×2 (08:24→10:26)
[2021-05-09] MEDS: NACL NASAL SPRAY 120 SPRAY/BOTTLE NS SCH ×2 (08:27→21:00)
[2021-05-09] MEDS ORDERED: LIDOCAINE HCL 1% 20 ML VIAL ONE (08:30)
[2021-05-09] MEDS ORDERED: BUPIVACAINE/PF 0.25% 30ML VIAL IJ ONE (08:30)
[2021-05-09] MEDS ORDERED: PROPOFOL 1000 MG/100 ML 100 ML IV ONE (08:33)
[2021-05-09] MEDS ORDERED: HEPARIN 10,000 UNIT/10ML (1,000 UNIT/ML) VIAL ONE (08:37)
[2021-05-09] MEDS ORDERED: SODIUM BICARB 8.4% 50ML SYRINGE ONE (08:51)
[2021-05-09] MEDS: Vitamin B Complex/Vit C/Folic Acid PO SCH (09:00)
[2021-05-09] MEDS: IRON SUCROSE COMPLEX 300 MG in 0.9%NACL 50ML 50 ML IV SCH (09:00)
[2021-05-09] MEDS: ASPIRIN 81 MG EC TAB PO SCH (09:00)
[2021-05-09] MEDS: FAMOTIDINE 20MG TAB PO SCH (09:00)
[2021-05-09 09:06] LABS: ABG BASE EXCESS -1.5 mmol/L (-2.0-3.0); ABG HCO3 28.7 mmol/L (21.0-28.0); ABG OXYGEN SATURATION 80.9 % (95.0-99.0); ABG PCO2 87 mmHg (35-48)
[2021-05-09] MEDS ORDERED: FLUMAZENIL 0.1MG/1ML 5ML VIAL IV ONE (09:15)
[2021-05-09] MEDS ORDERED: ROCURONIUM 10MG/1ML SYR 10 MG/ML ML ONE (09:25)
[2021-05-09 10:15] LABS: ABG BASE EXCESS 2.2 mmol/L (-2.0-3.0); ABG HCO3 25.1 mmol/L (21.0-28.0); ABG OXYGEN SATURATION 95.8 % (95.0-99.0); ABG PCO2 32 mmHg (35-48)
[2021-05-09 12:05] LABS: ABG HCO3 25.8 mmol/L (21.0-28.0); ABG OXYGEN SATURATION 96.6 % (95.0-99.0); ABG PCO2 46 mmHg (35-48)
[2021-05-09] MEDS: HEPARIN 5,000 UNIT VIAL IJ PRN (17:35)
[2021-05-09 19:21] LABS: APPEARANCE BODY FLUID CLEAR (CLEAR); COLOR,BODY FLUID YELLOW (LT YELLOW); SPECIMENTYPE,BODY FLUID PLEURAL
[2021-05-09 19:23] LABS: TOTAL VOLUME,BODY FLUID 19 mL
[2021-05-09 19:24] LABS: BODY FLUID RBC 287 /cu. mm.; BODY FLUID WBC 36 /cu. mm.
[2021-05-09 19:30] LABS: BF LYMPHOCYTE 33 %; BF MONOCYTE 4 %
[2021-05-09] MEDS: EPOETIN ALFA-EPBX (ESRD) 10,000 UNIT/ML VIAL SQ SCH (21:00)
[2021-05-09] MEDS: ATORVASTATIN 40 MG TABLET PO SCH (22:29)
[2021-05-10] VITALS (62 sets, daily range): BP systolic 92–160; BP diastolic 31–79
[2021-05-10 04:33] LABS: BASOPHILS % (AUTO) 0.1 % (0.0-5.0); HEMATOCRIT 26.5 % (42-54); LYMPHOCYTES % (AUTO) 9.8 % (21.0-51.0); MEAN CORPUSCULAR HEMOGLOBIN 28.7 pg (27.0-33.0); MEAN CORPUSCULAR HGB CONC 31.3 g/dL (32.0-36.0); MEAN CORPUSCULAR VOLUME 91.7 fL (79-99); NEUTROPHILS % (AUTO) 81.2 % (40.0-77.0); PLATELET COUNT (AUTO) 246 K/uL (130-400); RED BLOOD CELL COUNT(AUTO) 2.89 MIL/uL (4.50-6.20); RED CELL DISTRIBUTION WIDTH 15.9 % (11.0-15.5); WHITE BLOOD COUNT (AUTO) 13.9 K/uL (4.8-10.8)
[2021-05-10 04:47] LABS: CREATININE 3.7 mg/dL (0.5-1.5); POTASSIUM 3.7 mmol/L (3.5-5.1)
[2021-05-10 07:43] LABS: ABG BASE EXCESS 0.9 mmol/L (-2.0-3.0); ABG HCO3 24.8 mmol/L (21.0-28.0); ABG OXYGEN SATURATION 96.5 % (95.0-99.0); ABG PCO2 36 mmHg (35-48)
[2021-05-10] MEDS: CALCIUM AC 667MG CAP PO SCH ×4 (08:18→17:37)
[2021-05-10] MEDS: NACL NASAL SPRAY 120 SPRAY/BOTTLE NS SCH ×3 (09:00→20:43)
[2021-05-10] MEDS: IRON SUCROSE COMPLEX 300 MG in 0.9%NACL 50ML 50 ML IV SCH (09:29)
[2021-05-10] MEDS: Vitamin B Complex/Vit C/Folic Acid PO SCH (09:29)
[2021-05-10] MEDS: FAMOTIDINE 20MG TAB PO SCH (09:29)
[2021-05-10] MEDS: ASPIRIN 81 MG EC TAB PO SCH (09:29)
[2021-05-10] MEDS: INSULIN HUMULIN R 100 UNIT/ML 3ML SQ SCH ×3 (11:49→20:43)
[2021-05-10] MEDS ORDERED: 0.9%NACL 1000ML 2,000 ML IV ONE (13:40)
[2021-05-10] MEDS: HEPARIN 5,000 UNIT VIAL IJ PRN (17:08)
[2021-05-10] MEDS ORDERED: MAG/ALUM/SIMETH 30 ML UDCUP PO SCH (18:15)
[2021-05-10] MEDS: ATORVASTATIN 40 MG TABLET PO SCH (20:45)
[2021-05-11] VITALS (8 sets, daily range): BP systolic 113–139; BP diastolic 42–86
[2021-05-11 03:41] LABS: BASOPHILS % (AUTO) 0.1 % (0.0-5.0); EOSINOPHILS % (AUTO) 0.4 % (0.0-8.0); HEMATOCRIT 27.1 % (42-54); LYMPHOCYTES % (AUTO) 13.5 % (21.0-51.0); MEAN CORPUSCULAR HEMOGLOBIN 28.5 pg (27.0-33.0); MEAN CORPUSCULAR HGB CONC 31.4 g/dL (32.0-36.0); MEAN CORPUSCULAR VOLUME 90.9 fL (79-99); MONOCYTES % (AUTO) 9.3 % (3.0-13.0); NEUTROPHILS % (AUTO) 75.7 % (40.0-77.0); PLATELET COUNT (AUTO) 253 K/uL (130-400); RED BLOOD CELL COUNT(AUTO) 2.98 MIL/uL (4.50-6.20); RED CELL DISTRIBUTION WIDTH 16.7 % (11.0-15.5); WHITE BLOOD COUNT (AUTO) 16.8 K/uL (4.8-10.8)
[2021-05-11 03:53] LABS: CREATININE 2.9 mg/dL (0.5-1.5); MAGNESIUM 2.1 mg/dL (1.80-2.40); PHOSPHORUS 3.2 mg/dL (2.5-4.9); POTASSIUM 3.6 mmol/L (3.5-5.1)
[2021-05-11] MEDS: INSULIN HUMULIN R 100 UNIT/ML 3ML SQ SCH ×4 (05:52→21:00)
[2021-05-11] MEDS: NACL NASAL SPRAY 120 SPRAY/BOTTLE NS SCH ×3 (08:39→21:00)
[2021-05-11] MEDS: FAMOTIDINE 20MG TAB PO SCH (08:39)
[2021-05-11] MEDS: ASPIRIN 81 MG EC TAB PO SCH (08:39)
[2021-05-11] MEDS: Vitamin B Complex/Vit C/Folic Acid PO SCH (08:39)
[2021-05-11] MEDS: CALCIUM AC 667MG CAP PO SCH ×3 (08:39→15:17)
[2021-05-11] MEDS: ACETAMINOPHEN 325 MG TAB PO PRN (09:41)
[2021-05-11] MEDS ORDERED: CEFTRIAXONE 1G VIAL IVP SCH (10:30)
[2021-05-11] MEDS ORDERED: AZITHROMYCIN 250 MG TABLET PO SCH (10:30)
[2021-05-11] MEDS ORDERED: SODIUM CHLORIDE 3% FOR INHALATION 4 ML/AMP VIAL.NEB IH ONE (11:03)
[2021-05-11] MEDS ORDERED: ALBUMIN (HUMAN) 25% 250 ML IV PRN (12:00)
[2021-05-11] MEDS: ZOSYN 3.375GM +NS 50ML IV SCH ×2 (12:38→22:13)
[2021-05-11] MEDS: LINEZOLID 600 MG/ISO-OSM 300 ML IV SCH (12:38)
[2021-05-11] MEDS: MIDODRINE HCL 5 MG TABLET PO SCH ×2 (15:17→22:03)
[2021-05-11] MEDS ORDERED: 0.9%NACL 50ML 50 ML IV ONE (21:53)
[2021-05-11] MEDS: ATORVASTATIN 40 MG TABLET PO SCH (22:03)
[2021-05-11] MEDS: EPOETIN ALFA-EPBX (ESRD) 10,000 UNIT/ML VIAL SQ SCH (22:09)
[2021-05-12] VITALS (21 sets, daily range): BP systolic 122–155; BP diastolic 48–74
[2021-05-12] MEDS: LINEZOLID 600 MG/ISO-OSM 300 ML IV SCH ×2 (00:18→14:23)
[2021-05-12 03:57] LABS: BASOPHILS % (AUTO) 0.1 % (0.0-5.0); EOSINOPHILS % (AUTO) 0.5 % (0.0-8.0); HEMATOCRIT 24.9 % (42-54); LYMPHOCYTES % (AUTO) 7.7 % (21.0-51.0); MEAN CORPUSCULAR HEMOGLOBIN 28.6 pg (27.0-33.0); MEAN CORPUSCULAR HGB CONC 32.1 g/dL (32.0-36.0); MEAN CORPUSCULAR VOLUME 88.9 fL (79-99); MONOCYTES % (AUTO) 8.9 % (3.0-13.0); NEUTROPHILS % (AUTO) 81.6 % (40.0-77.0); PLATELET COUNT (AUTO) 202 K/uL (130-400); RED CELL DISTRIBUTION WIDTH 17.3 % (11.0-15.5); WHITE BLOOD COUNT (AUTO) 18.4 K/uL (4.8-10.8)
[2021-05-12 04:06] LABS: CREATININE 4.4 mg/dL (0.5-1.5); POTASSIUM 4.1 mmol/L (3.5-5.1)
[2021-05-12] MEDS: CALCIUM AC 667MG CAP PO SCH ×3 (09:10→17:32)
[2021-05-12] MEDS: FAMOTIDINE 20MG TAB PO SCH (09:10)
[2021-05-12] MEDS: Vitamin B Complex/Vit C/Folic Acid PO SCH (09:10)
[2021-05-12] MEDS: MIDODRINE HCL 5 MG TABLET PO SCH ×3 (09:10→21:35)
[2021-05-12] MEDS: ASPIRIN 81 MG EC TAB PO SCH (09:10)
[2021-05-12] MEDS: NACL NASAL SPRAY 120 SPRAY/BOTTLE NS SCH ×3 (09:12→21:00)
[2021-05-12] MEDS: INSULIN HUMULIN R 100 UNIT/ML 3ML SQ SCH ×4 (09:19→21:39)
[2021-05-12] MEDS ORDERED: SODIUM CHLORIDE 3% FOR INHALATION 4 ML/AMP VIAL.NEB IH ONE ×2 (10:54→17:57)
[2021-05-12] MEDS ORDERED: PHARMACY COMMUNICATION MISC SCH (14:00)
[2021-05-12] MEDS ORDERED: ALBUMIN (HUMAN) 25% 250 ML IV PRN (14:00)
[2021-05-12] MEDS ORDERED: ALBUMIN (HUMAN) 5% 250 ML IV SCH (14:00)
[2021-05-12] MEDS: MEROPENEM 500 MG VIAL IVP SCH (14:28)
[2021-05-12] MEDS: ATORVASTATIN 40 MG TABLET PO SCH (21:35)
[2021-05-12] MEDS: INSULIN GLARGINE 100 UNITS/ML 10 ML VIAL SQ SCH (21:40)
[2021-05-13] VITALS (7 sets, daily range): BP systolic 109–136; BP diastolic 46–59
[2021-05-13] MEDS: LINEZOLID 600 MG/ISO-OSM 300 ML IV SCH ×3 (00:15→21:23)
[2021-05-13] MEDS: MEROPENEM 500 MG VIAL IVP SCH ×2 (02:22→14:57)
[2021-05-13 03:53] LABS: BASOPHILS % (AUTO) 0.1 % (0.0-5.0); EOSINOPHILS % (AUTO) 1.1 % (0.0-8.0); HEMATOCRIT 25.8 % (42-54); LYMPHOCYTES % (AUTO) 13.5 % (21.0-51.0); MEAN CORPUSCULAR HEMOGLOBIN 28.7 pg (27.0-33.0); MEAN CORPUSCULAR HGB CONC 31.4 g/dL (32.0-36.0); MEAN CORPUSCULAR VOLUME 91.5 fL (79-99); MONOCYTES % (AUTO) 11.5 % (3.0-13.0); NEUTROPHILS % (AUTO) 72.9 % (40.0-77.0); PLATELET COUNT (AUTO) 184 K/uL (130-400); RED BLOOD CELL COUNT(AUTO) 2.82 MIL/uL (4.50-6.20); RED CELL DISTRIBUTION WIDTH 17.7 % (11.0-15.5); WHITE BLOOD COUNT (AUTO) 20.3 K/uL (4.8-10.8)
[2021-05-13 04:08] LABS: CREATININE 3.5 mg/dL (0.5-1.5); POTASSIUM 3.3 mmol/L (3.5-5.1)
[2021-05-13] MEDS: ASPIRIN 81 MG EC TAB PO SCH (08:16)
[2021-05-13] MEDS: Vitamin B Complex/Vit C/Folic Acid PO SCH (08:16)
[2021-05-13] MEDS: CALCIUM AC 667MG CAP PO SCH ×3 (08:16→17:16)
[2021-05-13] MEDS: FAMOTIDINE 20MG TAB PO SCH (08:16)
[2021-05-13] MEDS: NACL NASAL SPRAY 120 SPRAY/BOTTLE NS SCH ×3 (08:16→21:00)
[2021-05-13] MEDS: MIDODRINE HCL 5 MG TABLET PO SCH ×3 (09:00→21:21)
[2021-05-13] MEDS: ACETAMINOPHEN 325 MG TAB PO PRN (10:50)
[2021-05-13] MEDS: INSULIN HUMULIN R 100 UNIT/ML 3ML SQ SCH ×3 (11:30→21:19)
[2021-05-13] MEDS: ATORVASTATIN 40 MG TABLET PO SCH (21:18)
[2021-05-13] MEDS: TAMSULOSIN HCL 0.4 MG CAP.ER.24H PO SCH (21:18)
[2021-05-13] MEDS: EPOETIN ALFA-EPBX (ESRD) 10,000 UNIT/ML VIAL SQ SCH (21:18)
[2021-05-13] MEDS: INSULIN GLARGINE 100 UNITS/ML 10 ML VIAL SQ SCH (21:20)
[2021-05-14] VITALS (21 sets, daily range): BP systolic 101–130; BP diastolic 44–62
[2021-05-14] MEDS: MEROPENEM 500 MG VIAL IVP SCH ×2 (02:50→17:34)
[2021-05-14 04:26] LABS: HEMATOCRIT 25.1 % (42-54); MEAN CORPUSCULAR HEMOGLOBIN 28.8 pg (27.0-33.0); MEAN CORPUSCULAR HGB CONC 31.5 g/dL (32.0-36.0); MEAN CORPUSCULAR VOLUME 91.6 fL (79-99); RED BLOOD CELL COUNT(AUTO) 2.74 MIL/uL (4.50-6.20); RED CELL DISTRIBUTION WIDTH 17.4 % (11.0-15.5); WHITE BLOOD COUNT (AUTO) 17.4 K/uL (4.8-10.8)
[2021-05-14 04:45] LABS: CREATININE 4.8 mg/dL (0.5-1.5); POTASSIUM 3.4 mmol/L (3.5-5.1)
[2021-05-14] MEDS: FLUCONAZOLE 400 MG/NS 200 ML 200 ML IV SCH (05:05)
[2021-05-14] MEDS: INSULIN HUMULIN R 100 UNIT/ML 3ML SQ SCH ×4 (06:32→20:48)
[2021-05-14] MEDS: LINEZOLID 600 MG/ISO-OSM 300 ML IV SCH ×2 (08:41→20:47)
[2021-05-14] MEDS: NACL NASAL SPRAY 120 SPRAY/BOTTLE NS SCH ×3 (08:42→20:55)
[2021-05-14] MEDS: CALCIUM AC 667MG CAP PO SCH ×3 (08:45→17:12)
[2021-05-14] MEDS: MIDODRINE HCL 5 MG TABLET PO SCH ×3 (08:45→20:46)
[2021-05-14] MEDS: Vitamin B Complex/Vit C/Folic Acid PO SCH ×2 (08:45→08:47)
[2021-05-14] MEDS: FAMOTIDINE 20MG TAB PO SCH (08:45)
[2021-05-14] MEDS: FOLIC ACID 1 MG TABLET PO SCH (08:47)
[2021-05-14] MEDS ORDERED: FLUCONAZOLE 200 MG/NS 100 ML 100 ML IV SCH (09:00)
[2021-05-14] MEDS ORDERED: FLUCONAZOLE 400 MG/NS 200 ML 200 ML IV SCH (09:00)
[2021-05-14] MEDS ORDERED: CLOPIDOGREL 75MG TAB PO SCH (09:00)
[2021-05-14] MEDS: TAMSULOSIN HCL 0.4 MG CAP.ER.24H PO SCH (20:46)
[2021-05-14] MEDS: ATORVASTATIN 40 MG TABLET PO SCH (20:46)
[2021-05-14] MEDS: INSULIN GLARGINE 100 UNITS/ML 10 ML VIAL SQ SCH (20:47)
[2021-05-15] MEDS: MEROPENEM 500 MG VIAL IVP SCH ×2 (02:05→12:54)
[2021-05-15 04:11] VITALS: BP 117/49
[2021-05-15] MEDS: FLUCONAZOLE 400 MG/NS 200 ML 200 ML IV SCH (04:54)
[2021-05-15] MEDS: INSULIN HUMULIN R 100 UNIT/ML 3ML SQ SCH ×4 (05:28→21:22)
[2021-05-15 06:42] LABS: BASOPHILS % (AUTO) 0.1 % (0.0-5.0); EOSINOPHILS % (AUTO) 2.2 % (0.0-8.0); HEMATOCRIT 25.3 % (42-54); LYMPHOCYTES % (AUTO) 11.1 % (21.0-51.0); MEAN CORPUSCULAR HEMOGLOBIN 28.7 pg (27.0-33.0); MEAN CORPUSCULAR HGB CONC 30.4 g/dL (32.0-36.0); MEAN CORPUSCULAR VOLUME 94.4 fL (79-99); MONOCYTES % (AUTO) 10.1 % (3.0-13.0); NEUTROPHILS % (AUTO) 75.7 % (40.0-77.0); PLATELET COUNT (AUTO) 167 K/uL (130-400); RED BLOOD CELL COUNT(AUTO) 2.68 MIL/uL (4.50-6.20); RED CELL DISTRIBUTION WIDTH 17.8 % (11.0-15.5); WHITE BLOOD COUNT (AUTO) 14.9 K/uL (4.8-10.8)
[2021-05-15 06:50] LABS: CREATININE 3.8 mg/dL (0.5-1.5); POTASSIUM 3.6 mmol/L (3.5-5.1)
[2021-05-15 07:54] VITALS: BP 138/63
[2021-05-15] MEDS: LINEZOLID 600 MG/ISO-OSM 300 ML IV SCH ×2 (08:33→21:04)
[2021-05-15] MEDS: MIDODRINE HCL 5 MG TABLET PO SCH ×3 (08:34→21:04)
[2021-05-15] MEDS: Vitamin B Complex/Vit C/Folic Acid PO SCH ×2 (08:34)
[2021-05-15] MEDS: CALCIUM AC 667MG CAP PO SCH ×3 (08:34→17:12)
[2021-05-15] MEDS: FOLIC ACID 1 MG TABLET PO SCH (08:34)
[2021-05-15] MEDS: FAMOTIDINE 20MG TAB PO SCH (08:34)
[2021-05-15] MEDS: NACL NASAL SPRAY 120 SPRAY/BOTTLE NS SCH ×3 (08:36→21:00)
[2021-05-15 12:11] VITALS: BP 129/74
[2021-05-15 13:54] LABS: HEMATOCRIT 27.4 % (42-54)
[2021-05-15 16:21] VITALS: BP 131/54
[2021-05-15 19:16] VITALS: BP 136/52
[2021-05-15] MEDS: TAMSULOSIN HCL 0.4 MG CAP.ER.24H PO SCH (21:03)
[2021-05-15] MEDS: ATORVASTATIN 40 MG TABLET PO SCH (21:04)
[2021-05-15] MEDS: INSULIN GLARGINE 100 UNITS/ML 10 ML VIAL SQ SCH (21:21)
[2021-05-15 23:49] VITALS: BP 150/59
[2021-05-16] VITALS (11 sets, daily range): BP systolic 118–148; BP diastolic 45–65
[2021-05-16] MEDS: MEROPENEM 500 MG VIAL IVP SCH ×2 (01:17→13:34)
[2021-05-16] MEDS: FLUCONAZOLE 400 MG/NS 200 ML 200 ML IV SCH (04:51)
[2021-05-16] MEDS: INSULIN HUMULIN R 100 UNIT/ML 3ML SQ SCH ×4 (06:12→21:53)
[2021-05-16 06:17] LABS: BASOPHILS % (AUTO) 0.1 % (0.0-5.0); EOSINOPHILS % (AUTO) 2.6 % (0.0-8.0); HEMATOCRIT 22.6 % (42-54); MEAN CORPUSCULAR HGB CONC 31.4 g/dL (32.0-36.0); MEAN CORPUSCULAR VOLUME 92.2 fL (79-99); MONOCYTES % (AUTO) 10.9 % (3.0-13.0); NEUTROPHILS % (AUTO) 73.8 % (40.0-77.0); PLATELET COUNT (AUTO) 165 K/uL (130-400); RED BLOOD CELL COUNT(AUTO) 2.45 MIL/uL (4.50-6.20); RED CELL DISTRIBUTION WIDTH 17.7 % (11.0-15.5); WHITE BLOOD COUNT (AUTO) 13.9 K/uL (4.8-10.8)
[2021-05-16 06:46] LABS: INR 1.28 (0.85-1.15); PROTHROMBIN TIME 13.6 SEC (9.6-11.6)
[2021-05-16 06:47] LABS: PARTIAL THROMBOPLASTIN TIME 37.3 SEC (26.3-35.5)
[2021-05-16 06:48] LABS: CREATININE 4.3 mg/dL (0.5-1.5)
[2021-05-16 06:53] LABS: POTASSIUM 2.9 mmol/L (3.5-5.1)
[2021-05-16] MEDS: CALCIUM AC 667MG CAP PO SCH ×3 (08:00→17:26)
[2021-05-16] MEDS: FOLIC ACID 1 MG TABLET PO SCH (08:40)
[2021-05-16] MEDS: Vitamin B Complex/Vit C/Folic Acid PO SCH ×2 (08:40)
[2021-05-16] MEDS: NACL NASAL SPRAY 120 SPRAY/BOTTLE NS SCH ×3 (08:40→21:00)
[2021-05-16] MEDS: MIDODRINE HCL 5 MG TABLET PO SCH ×3 (08:41→21:45)
[2021-05-16] MEDS: FAMOTIDINE 20MG TAB PO SCH (08:41)
[2021-05-16] MEDS ORDERED: POTASSIUM CHLORIDE 20MEQ/100ML 100 ML IV ONE (08:56)
[2021-05-16] MEDS: POTASSIUM CHLORIDE 20 MEQ/100 ML BAG IV SCH ×2 (09:00→10:45)
[2021-05-16] MEDS: LINEZOLID 600 MG/ISO-OSM 300 ML IV SCH (09:02)
[2021-05-16] MEDS ORDERED: MIDAZOLAM HCL 1 MG/ML 2ML VIAL ONE (10:51)
[2021-05-16] MEDS ORDERED: FENTANYL CITRATE PF 50 MCG/1 ML 2ML VIAL ONE (10:51)
[2021-05-16] MEDS: POTASSIUM CHLORIDE 10% ELIXIR 20 MEQ/15 ML UDCUP PO SCH (13:34)
[2021-05-16] MEDS: ZYVOX 600 MG TAB PO SCH (21:45)
[2021-05-16] MEDS: EPOETIN ALFA-EPBX (ESRD) 10,000 UNIT/ML VIAL SQ SCH (21:45)
[2021-05-16] MEDS: ATORVASTATIN 40 MG TABLET PO SCH (21:45)
[2021-05-16] MEDS: TAMSULOSIN HCL 0.4 MG CAP.ER.24H PO SCH (21:45)
[2021-05-16] MEDS: INSULIN GLARGINE 100 UNITS/ML 10 ML VIAL SQ SCH (21:54)
[2021-05-17] VITALS (20 sets, daily range): BP systolic 104–144; BP diastolic 43–74
[2021-05-17] MEDS: MEROPENEM 500 MG VIAL IVP SCH ×2 (03:50→18:00)
[2021-05-17] MEDS: FLUCONAZOLE 400 MG/NS 200 ML 200 ML IV SCH (05:30)
[2021-05-17 08:57] LABS: BASOPHILS % (AUTO) 0.2 % (0.0-5.0); EOSINOPHILS % (AUTO) 3.2 % (0.0-8.0); HEMATOCRIT 26.5 % (42-54); LYMPHOCYTES % (AUTO) 20.1 % (21.0-51.0); MEAN CORPUSCULAR HEMOGLOBIN 28.9 pg (27.0-33.0); MEAN CORPUSCULAR HGB CONC 30.9 g/dL (32.0-36.0); MEAN CORPUSCULAR VOLUME 93.3 fL (79-99); MONOCYTES % (AUTO) 10.7 % (3.0-13.0); NEUTROPHILS % (AUTO) 65.1 % (40.0-77.0); PLATELET COUNT (AUTO) 161 K/uL (130-400); RED BLOOD CELL COUNT(AUTO) 2.84 MIL/uL (4.50-6.20); WHITE BLOOD COUNT (AUTO) 15.7 K/uL (4.8-10.8)
[2021-05-17] MEDS: Vitamin B Complex/Vit C/Folic Acid PO SCH ×2 (09:00→18:02)
[2021-05-17] MEDS: NACL NASAL SPRAY 120 SPRAY/BOTTLE NS SCH ×3 (09:00→20:16)
[2021-05-17 09:14] LABS: ALBUMIN 1.6 g/dL (3.5-5.0); CARBON DIOXIDE 24 mmol/L (21-32); CHLORIDE 96 mmol/L (101-111); CREATININE 6.5 mg/dL (0.5-1.5); GLOMERULAR FILTR. RATE CALC 9 mL/min (>60); GLUCOSE,RANDOM 101 mg/dL (70-105); PHOSPHORUS 4.8 mg/dL (2.5-4.9); POTASSIUM 4.1 mmol/L (3.5-5.1); SODIUM SERUM 130 mmol/L (136-145); UREA NITROGEN, BLOOD 45 mg/dL (7-18)
[2021-05-17 09:16] LABS: B-TYPE NATRIURETIC PEPTIDE 421 pg/mL (0-100)
[2021-05-17 09:32] LABS: % IRON SATURATION 29.5 % (30-44)
[2021-05-17 09:40] LABS: ALANINE AMINOTRANSFERASE 22 U/L (12-78); ASPARTATE AMINOTRANSFERASE 65 U/L (10-37); BILIRUBIN,TOTAL 0.9 mg/dL (0.2-1.0); THYROID STIMULATING HORMONE 2.02 uIU/mL (0.36-3.74); TOTAL PROTEIN, SERUM 5.7 g/dL (6.0-8.3)
[2021-05-17] MEDS ORDERED: IOHEXOL-350 75 ML VIAL IV ONE (09:53)
[2021-05-17] MEDS: INSULIN HUMULIN R 100 UNIT/ML 3ML SQ SCH ×3 (11:30→20:02)
[2021-05-17] MEDS: CALCIUM AC 667MG CAP PO SCH ×3 (12:00→18:02)
[2021-05-17] MEDS: POTASSIUM CHLORIDE 10% ELIXIR 20 MEQ/15 ML UDCUP PO SCH (13:30)
[2021-05-17] MEDS ORDERED: 0.9%NACL 1000ML 2,000 ML IV ONE (13:30)
[2021-05-17] MEDS: MIDODRINE HCL 5 MG TABLET PO SCH ×3 (14:00→20:02)
[2021-05-17] MEDS: FOLIC ACID 1 MG TABLET PO SCH (18:01)
[2021-05-17] MEDS: ZYVOX 600 MG TAB PO SCH ×2 (18:02→20:02)
[2021-05-17] MEDS: FAMOTIDINE 20MG TAB PO SCH (18:02)
[2021-05-17] MEDS: TAMSULOSIN HCL 0.4 MG CAP.ER.24H PO SCH (20:16)
[2021-05-17] MEDS: ATORVASTATIN 40 MG TABLET PO SCH (20:16)
[2021-05-17] MEDS: INSULIN GLARGINE 100 UNITS/ML 10 ML VIAL SQ SCH (20:21)
[2021-05-18] VITALS (10 sets, daily range): BP systolic 104–146; BP diastolic 44–61
[2021-05-18] MEDS: MEROPENEM 500 MG VIAL IVP SCH ×2 (02:00→15:50)
[2021-05-18] MEDS: FLUCONAZOLE 400 MG/NS 200 ML 200 ML IV SCH (04:27)
[2021-05-18 04:41] LABS: BASOPHILS % (AUTO) 0.2 % (0.0-5.0); EOSINOPHILS % (AUTO) 1.7 % (0.0-8.0); HEMATOCRIT 25.5 % (42-54); LYMPHOCYTES % (AUTO) 12.4 % (21.0-51.0); MEAN CORPUSCULAR HEMOGLOBIN 28.9 pg (27.0-33.0); MEAN CORPUSCULAR HGB CONC 31.4 g/dL (32.0-36.0); MEAN CORPUSCULAR VOLUME 92.1 fL (79-99); MONOCYTES % (AUTO) 10.9 % (3.0-13.0); NEUTROPHILS % (AUTO) 74.1 % (40.0-77.0); PLATELET COUNT (AUTO) 156 K/uL (130-400); RED BLOOD CELL COUNT(AUTO) 2.77 MIL/uL (4.50-6.20); WHITE BLOOD COUNT (AUTO) 13.3 K/uL (4.8-10.8)
[2021-05-18 04:54] LABS: INR 1.15 (0.85-1.15); PROTHROMBIN TIME 12.4 SEC (9.6-11.6)
[2021-05-18 04:55] LABS: PARTIAL THROMBOPLASTIN TIME 33.7 SEC (26.3-35.5)
[2021-05-18 05:16] LABS: ALBUMIN 1.7 g/dL (3.5-5.0); BILIRUBIN,TOTAL 0.8 mg/dL (0.2-1.0); CREATININE 4.5 mg/dL (0.5-1.5); PHOSPHORUS 5.1 mg/dL (2.5-4.9); POTASSIUM 3.9 mmol/L (3.5-5.1); TOTAL PROTEIN, SERUM 5.6 g/dL (6.0-8.3)
[2021-05-18] MEDS: INSULIN HUMULIN R 100 UNIT/ML 3ML SQ SCH ×4 (06:03→20:59)
[2021-05-18] MEDS: CALCIUM AC 667MG CAP PO SCH ×3 (08:00→16:32)
[2021-05-18] MEDS: Vitamin B Complex/Vit C/Folic Acid PO SCH ×2 (09:00→10:11)
[2021-05-18] MEDS ORDERED: ALBUMIN (HUMAN) 25% 50 ML IV SCH (09:00)
[2021-05-18] MEDS: NACL NASAL SPRAY 120 SPRAY/BOTTLE NS SCH ×3 (10:10→20:51)
[2021-05-18] MEDS: FAMOTIDINE 20MG TAB PO SCH (10:10)
[2021-05-18] MEDS: FOLIC ACID 1 MG TABLET PO SCH (10:10)
[2021-05-18] MEDS: ZYVOX 600 MG TAB PO SCH ×2 (10:10→20:51)
[2021-05-18] MEDS: MIDODRINE HCL 5 MG TABLET PO SCH ×3 (10:10→20:51)
[2021-05-18] MEDS: ATORVASTATIN 40 MG TABLET PO SCH (20:51)
[2021-05-18] MEDS: TAMSULOSIN HCL 0.4 MG CAP.ER.24H PO SCH (20:51)
[2021-05-18] MEDS: EPOETIN ALFA-EPBX (ESRD) 10,000 UNIT/ML VIAL SQ SCH (20:52)
[2021-05-18] MEDS: INSULIN GLARGINE 100 UNITS/ML 10 ML VIAL SQ SCH (21:01)
[2021-05-19] VITALS (8 sets, daily range): BP systolic 126–143; BP diastolic 54–63
[2021-05-19] MEDS: MEROPENEM 500 MG VIAL IVP SCH ×2 (00:53→12:36)
[2021-05-19 04:17] LABS: HEMATOCRIT 25.1 % (42-54); MEAN CORPUSCULAR HEMOGLOBIN 28.6 pg (27.0-33.0); MEAN CORPUSCULAR HGB CONC 31.5 g/dL (32.0-36.0); MEAN CORPUSCULAR VOLUME 90.9 fL (79-99); RED BLOOD CELL COUNT(AUTO) 2.76 MIL/uL (4.50-6.20); RED CELL DISTRIBUTION WIDTH 18.3 % (11.0-15.5); WHITE BLOOD COUNT (AUTO) 14.9 K/uL (4.8-10.8)
[2021-05-19 04:25] LABS: CREATININE 5.8 mg/dL (0.5-1.5); POTASSIUM 3.9 mmol/L (3.5-5.1)
[2021-05-19] MEDS: FLUCONAZOLE 400 MG/NS 200 ML 200 ML IV SCH (04:38)
[2021-05-19] MEDS: INSULIN HUMULIN R 100 UNIT/ML 3ML SQ SCH ×3 (06:18→16:30)
[2021-05-19] MEDS: Vitamin B Complex/Vit C/Folic Acid PO SCH ×2 (09:00→09:39)
[2021-05-19] MEDS: CALCIUM AC 667MG CAP PO SCH ×3 (09:39→17:12)
[2021-05-19] MEDS: MIDODRINE HCL 5 MG TABLET PO SCH ×2 (09:39→12:36)
[2021-05-19] MEDS: FAMOTIDINE 20MG TAB PO SCH (09:39)
[2021-05-19] MEDS: FOLIC ACID 1 MG TABLET PO SCH (09:39)
[2021-05-19] MEDS: NACL NASAL SPRAY 120 SPRAY/BOTTLE NS SCH ×2 (09:40→12:36)
[2021-05-19] MEDS ORDERED: ASPIRIN 81 MG EC TAB PO SCH (10:30)
[2021-05-19] MEDS ORDERED: Midodrine Hcl PO (12:10)
[2021-05-19] MEDS ORDERED: LIDOCAINE HCL 1% 20 ML VIAL ONE (15:49)
[2021-05-19 16:19] LABS: INR 1.14 (0.85-1.15); PROTHROMBIN TIME 12.3 SEC (9.6-11.6)
[2021-05-19 16:21] LABS: PARTIAL THROMBOPLASTIN TIME 31.1 SEC (26.3-35.5)
== END 2021-05-19 21:07 | disposition hospice, home (50) | DRG 673 ==
LOC: EDH 07:33 → EDHIP 11:03 → 4DH 17:13 → 2CH 05-09 11:49 → 2DH 05-11 17:38 → 2AH 05-15 17:28
PROVIDERS: ADMIT Hospitalist; ATTEND Hospitalist
PROC: 5A1D70Z Performance of Urinary Filtration, Intermittent, Less than 6 Hours Per Day (ICD-10-PCS; 2021-05-06)
PROC: 0JH63XZ Insertion of Tunneled Vascular Access Device into Chest Subcutaneous Tissue and Fascia, Percutaneous Approach (ICD-10-PCS; 2021-05-06)
PROC: 02H633Z Insertion of Infusion Device into Right Atrium, Percutaneous Approach (ICD-10-PCS; 2021-05-06)
PROC: B5181ZA Fluoroscopy of Superior Vena Cava using Low Osmolar Contrast, Guidance (ICD-10-PCS; 2021-05-06)
PROC: B548ZZA Ultrasonography of Superior Vena Cava, Guidance (ICD-10-PCS; 2021-05-06)
PROC: 5A1D70Z Performance of Urinary Filtration, Intermittent, Less than 6 Hours Per Day (ICD-10-PCS; 2021-05-07)
PROC: 0BH17EZ Insertion of Endotracheal Airway into Trachea, Via Natural or Artificial Opening (ICD-10-PCS; 2021-05-09)
PROC: 5A09357 Assistance with Respiratory Ventilation, Less than 24 Consecutive Hours, Continuous Positive Airway Pressure (ICD-10-PCS; 2021-05-09)
PROC: 5A1D70Z Performance of Urinary Filtration, Intermittent, Less than 6 Hours Per Day (ICD-10-PCS; 2021-05-09)
PROC: 0W993ZZ Drainage of Right Pleural Cavity, Percutaneous Approach (ICD-10-PCS; 2021-05-09)
PROC: 0FB03ZX Excision of Liver, Percutaneous Approach, Diagnostic (ICD-10-PCS; 2021-05-09)
PROC: 031C0ZF Bypass Left Radial Artery to Lower Arm Vein, Open Approach (ICD-10-PCS; principal; 2021-05-09 08:00)
PROC: 5A1935Z Respiratory Ventilation, Less than 24 Consecutive Hours (ICD-10-PCS; 2021-05-09 08:00)
PROC: 5A09357 Assistance with Respiratory Ventilation, Less than 24 Consecutive Hours, Continuous Positive Airway Pressure (ICD-10-PCS; 2021-05-10)
PROC: 5A1D70Z Performance of Urinary Filtration, Intermittent, Less than 6 Hours Per Day (ICD-10-PCS; 2021-05-10)
PROC: 5A1D70Z Performance of Urinary Filtration, Intermittent, Less than 6 Hours Per Day (ICD-10-PCS; 2021-05-12)
PROC: 5A1D70Z Performance of Urinary Filtration, Intermittent, Less than 6 Hours Per Day (ICD-10-PCS; 2021-05-14)
PROC: 5A1D70Z Performance of Urinary Filtration, Intermittent, Less than 6 Hours Per Day (ICD-10-PCS; 2021-05-16)
PROC: 5A1D70Z Performance of Urinary Filtration, Intermittent, Less than 6 Hours Per Day (ICD-10-PCS; 2021-05-17)
PROC: 0W993ZZ Drainage of Right Pleural Cavity, Percutaneous Approach (ICD-10-PCS; 2021-05-18)
PROC: 02PAX3Z Removal of Infusion Device from Heart, External Approach (ICD-10-PCS; 2021-05-19)
DX: N17.9 Acute kidney failure, unspecified (principal); I50.41 Acute combined systolic (congestive) and diastolic (congestive) heart failure; E43 Unspecified severe protein-calorie malnutrition; J18.9 Pneumonia, unspecified organism; J96.02 Acute respiratory failure with hypercapnia; J96.01 Acute respiratory failure with hypoxia; I13.2 Hypertensive heart and chronic kidney disease with heart failure and with stage 5 chronic kidney disease, or end stage renal disease; J98.11 Atelectasis; I42.9 Cardiomyopathy, unspecified; G81.91 Hemiplegia, unspecified affecting right dominant side; C78.7 Secondary malignant neoplasm of liver and intrahepatic bile duct; R47.01 Aphasia; J91.8 Pleural effusion in other conditions classified elsewhere; N18.6 End stage renal disease; N25.81 Secondary hyperparathyroidism of renal origin; Z66 Do not resuscitate; Z20.822 Contact with and (suspected) exposure to COVID-19; E11.22 Type 2 diabetes mellitus with diabetic chronic kidney disease; I25.10 Atherosclerotic heart disease of native coronary artery without angina pectoris; E88.09 Other disorders of plasma-protein metabolism, not elsewhere classified; I48.0 Paroxysmal atrial fibrillation; E78.5 Hyperlipidemia, unspecified; D50.9 Iron deficiency anemia, unspecified; E11.51 Type 2 diabetes mellitus with diabetic peripheral angiopathy without gangrene; E83.39 Other disorders of phosphorus metabolism; E87.6 Hypokalemia; G51.0 Bell's palsy; I95.1 Orthostatic hypotension; K86.9 Disease of pancreas, unspecified; L89.319 Pressure ulcer of right buttock, unspecified stage; L89.329 Pressure ulcer of left buttock, unspecified stage; D63.1 Anemia in chronic kidney disease; R53.81 Other malaise; M47.815 Spondylosis without myelopathy or radiculopathy, thoracolumbar region; R04.0 Epistaxis; R13.10 Dysphagia, unspecified; Z68.25 Body mass index [BMI] 25.0-25.9, adult; Z99.2 Dependence on renal dialysis; I25.2 Old myocardial infarction; Z51.5 Encounter for palliative care; Z74.01 Bed confinement status; Z79.899 Other long term (current) drug therapy; Z95.1 Presence of aortocoronary bypass graft; Z91.15 Patient's noncompliance with renal dialysis; Z91.11 Patient's noncompliance with dietary regimen; Z95.5 Presence of coronary angioplasty implant and graft; Z86.73 Personal history of transient ischemic attack (TIA), and cerebral infarction without residual deficits; Z83.3 Family history of diabetes mellitus
CPT/HCPCS: 36415; 36558; 36589; 36600; 47000; 70450; 70496; 70498; 70551; 71045; 74176; 76604; 76705; 76770; 76942; 77001; 80048; 80053; 80061; 81001; 82105; 82140; 82310; 82378; 82435; 82607; 82728; 82746; 82803; 82945; 82947; 82948; 83036; 83540; 83550; 83605; 83615; 83735; 83880; 83935; 83986; 84100; 84132; 84145; 84157; 84295; 84300; 84443; 84484; 84550; 85014; 85018; 85025; 85027; 85045; 85610; 85730; 86316; 86606; 86612; 86635; 86698; 86701; 86704; 86706; 86850; 86900; 86901; 86923; 87040; 87071; 87205; 87340; 87390; 87635; 89051; 90935; 93005; 93306; 94002; 94640; 94660; 97039; C1729; C1750; G0378; J0690; J1100; J1450; J1644; J1756; J1815; J1940; J2020; J2185; J2250; J2405; J2543; J2704; J2795; J3010; J3480; J3490; J7030; J7040; J7070; P9045; P9046; Q9967